=== PATIENT | male | born 1960 | race Caucasian/White ===

== ENCOUNTER 2017-12-10 12:03 | Observation (INO) | payer OTHER, SELFPAY ==
[2017-12-10] VITALS (11 sets, daily range): BP systolic 124–150; BP diastolic 71–90; PULSE 71–81; RESP 12–20; TEMP 36.6–36.8; O2SAT 96–98; BMI 41.4; BMI 40.3
--- NOTE | 2017-12-10 12:25 | EKG12_ITS ---
Test Reason : Blood Pressure : / mmHG Vent. Rate : 076 BPM Atrial Rate : 076 BPM P-R Int : 172 ms QRS Dur : 094 ms QT Int : 374 ms P-R-T Axes : 034 -26 002 degrees QTc Int : 420 ms Normal sinus rhythm Normal ECG Confirmed by CHARAN STONE, URI ([id number]), scientific editor SILVANA SAPP ([id number] on 12/13/2017 1:14:19 PM Referred By: MILDRED Confirmed By:URI FARRAR MD
--- NOTE | 2017-12-10 12:25 | RAD_ITS ---
STUDY: X-RAY CHEST REASON FOR EXAM: Male, 57 years old. 3 day history of chest pain. TECHNIQUE: Single AP portable view of the chest. COMPARISON: None. FINDINGS: EKG electrodes are seen. The lungs are clear and expanded. There is no demonstrated pleural abnormality. There is mild cardiac enlargement. Normal mediastinum and kaylin. Normal visualized pulmonary arteries. There is atherosclerotic tortuosity of the aortic arch and descending thoracic aorta. There are diffuse degenerative changes of the visualized thoracic spine. Normal visualized ribs, clavicles, and shoulders. There is no demonstrated abnormality of the visualized soft tissue structures of the upper abdomen. RAD/Chest 1 View (Portable) IMPRESSION: Mild cardiomegaly. No acute abnormality is seen. Electronically Signed: Celestino Sands MD at 13:02 EDT Tel [phone], Service support ,
[2017-12-10] MEDS: Aspirin 81 MG TAB.CHEW 324 MG PO (13:08)
[2017-12-10 13:19] LABS: Absolute Lymphocyte Count 1.39 X10^3/ul (0.83-4.51); Absolute Neutrophil Count 2.3 X10^3/uL (2.0-7.7); Basophil# 0.03 X10^3/uL; Basophil% 0.7 % (0-1); Eosinophil# 0.08 X10^3/uL; Eosinophils% 1.9 % (0-5); Hematocrit 44.6 % (40-54); Hemoglobin 14.5 g/dl (13.0-16.5); Lymphocyte # 1.39 X10^3/ul (4.0); Lymphocyte % 33.5 % (19-41); Mean Corp Hgb Conc 32.5 g/gl (32-36); Mean Corpuscular Volume 89.2 fL (80-94); Monocyte% 7.2 % (0-10); Neutrophil # 2.34 X10^3/uL (2.7-7.7); Neutrophil % 56.5 % (47-70); Platelet Count 208 K/mm3 (150-450); RBC Distribution Width CV 13.7 % (11.6-14.6); RBC Distribution Width SD 44.8 fl (35.1-43.9); White Blood Count 4.2 K/mm3 (4.4-11.0)
[2017-12-10 13:23] LABS: Differential Indicated SCAN CRITERIA MET; POSITIVE COUNT NO; POSITIVE DIFFERENTIAL NO; POSITIVE MORPHOLOGY YES
[2017-12-10 13:24] LABS: Anion Gap 8 (5-15); BUN 14 mg/dL (7-18); BUN/Creat Ratio 15.9 RATIO (10-20); Calcium,Total 8.8 mg/dL (8.5-10.1); Chloride 104 mmol/L (98-107); Creatinine, Serum 0.88 mg/dL (0.70-1.30); EST Glomerular Filtration Rate 95 mL/min (>60); Est Glom Filt Rate - Afr Amer 115 mL/min (>60); Estimated Creatinine Clearance 90.68 ml/min; Glucose 102 mg/dL (74-106); Potassium 4.2 mmol/L (3.5-5.1); Sodium Level 138 mmol/L (136-145)
--- NOTE | 2017-12-10 15:58 | ED.VISSUMM ---
- ER Visit Summary Date of Service: 12/10/17 Chief Complaint: Chest pain History of Present Illness: The patient is a 57 M history of CAD with prior cardiac stents around 1999 and. Hypertension and high cholesterol. Has had no recent cardiac workup. He states when he initially had chest pain 12 years ago he had a negative stress test but then they did a heart cath with a significant LAD lesion. He has had no recent cardiac catheterization. He states he has been having intermittent chest pain for months. Also exertional dyspnea. Physical Examination: Well-appearing middle-age male. Vital signs are stable afebrile. Pulse ox 96% on room air no hypoxia. HEENT exam unremarkable. Neck nontender. Lungs clear to auscultation bilaterally. Heart regular rhythm no murmur. Chest wall nontender. Abdomen soft nontender. Moving all 4 extremities. Calves nontender. No edema. No cords. Neurologically is awake alert with no focal motor deficits. Test Results: Chest x-ray mild cardiomegaly otherwise unremarkable read both by myself the radiologist. CBC normal. Chemistries normal. Troponin normal. EKG sinus rhythm rate is 76 with no acute abnormality. Emergency Department Course and Treatment: Underwent a cardiac workup. Receive p.o. aspirin as his workup is negative however I am concerned with his recent he is willing to be admitted. Treatment Plan: I spoke both to the hospitalist when the gardening instructor about admission and further evaluation. Disposition: Admit Impression: Acute chest pain of uncertain etiology next The with 2 cardiac stents This note was generated with [employer] dictation software. It may contain incorrect words, spelling, and punctuation that were not noted in review of the chart prior to signing ED Disposition - Plan for ED Patient: Chief Complaint: Chest Pain
--- NOTE | 2017-12-10 16:01 | ED.DCSUM_ITS ---
- ER Visit Summary Date of Service: 12/10/17 Chief Complaint: Chest pain History of Present Illness: The patient is a 57 M history of CAD with prior cardiac stents around 1999 and. Hypertension and high cholesterol. Has had no recent cardiac workup. He states when he initially had chest pain 12 years ago he had a negative stress test but then they did a heart cath with a significant LAD lesion. He has had no recent cardiac catheterization. He states he has been having intermittent chest pain for months. Also exertional dyspnea. Physical Examination: Well-appearing middle-age male. Vital signs are stable afebrile. Pulse ox 96% on room air no hypoxia. HEENT exam unremarkable. Neck nontender. Lungs clear to auscultation bilaterally. Heart regular rhythm no murmur. Chest wall nontender. Abdomen soft nontender. Moving all 4 extremities. Calves nontender. No edema. No cords. Neurologically is awake alert with no focal motor deficits. Test Results: Chest x-ray mild cardiomegaly otherwise unremarkable read both by myself the radiologist. CBC normal. Chemistries normal. Troponin normal. EKG sinus rhythm rate is 76 with no acute abnormality. Emergency Department Course and Treatment: Underwent a cardiac workup. Receive p.o. aspirin as his workup is negative however I am concerned with his recent he is willing to be admitted. Treatment Plan: I spoke both to the hospitalist when the olive packer about admission and further evaluation. Disposition: Admit Impression: Acute chest pain of uncertain etiology next The with 2 cardiac stents This note was generated with [employer] dictation software. It may contain incorrect words, spelling, and punctuation that were not noted in review of the chart prior to signing ED Disposition - Plan for ED Patient: Chief Complaint: Chest Pain
--- NOTE | 2017-12-10 16:20 | EKG12_ITS ---
Test Reason : ADMISSION CP EKG Blood Pressure : / mmHG Vent. Rate : 067 BPM Atrial Rate : 067 BPM P-R Int : 176 ms QRS Dur : 094 ms QT Int : 406 ms P-R-T Axes : 046 -19 003 degrees QTc Int : 429 ms Normal sinus rhythm Normal ECG When compared with ECG of 10-DEC-2017 12:13, MANUAL COMPARISON REQUIRED, DATA IS UNCONFIRMED Confirmed by CHARAN STONE, URI ([id number]), material expeditor SILVANA SAPP ([id number]) on 12/13/2017 1:30:40 PM Referred By: MEHDI Confirmed By:URI FARRAR MD
--- NOTE | 2017-12-10 16:22 | PCM.HP.STD ---
Problem List (1) Chest pain Status: Acute (2) CAD (coronary artery disease) Status: Chronic (3) ROSEMARIE (obstructive sleep apnea) Status: Chronic (4) History of tobacco abuse Status: Chronic Comment: No longer smoking (5) Hyperlipidemia Status: Chronic Qualifiers: History of Present Illness Date of Admission: 12/10/17 Chief Complaint: chest pain The patient is a 57 year old M who has a pmhx of CAD with prior stents in 2005, pt of Dr. Bustamante, also with hx of ROSEMARIE -compliant with CPAP, morbid obesity, HLD, who presents to the ER with c/o chest pain. He states he has had intermittent brief episodes frequently over the past month. They come on both at rest and exertion and last about 3-4 minutes before spontaneously resolving. He describes them as 3-4/10 squeezing dull pain in his midsternum and left chest wall. Sometimes these are associated with nausea, dizziness, and a flushing numb sensation in his cheeks and back of head/neck area. He has not contacted his professor of oceanography to inform him of these events. He denies SOB. Reportedly he has had false negative stress tests in the past. Also in the past 3-4 days he has had nightly chills and rigors. He denies being ill, and denies symptoms including cough, sore throat, congestion, vomiting, diarrhea, abdominal pain, dysuria. He is currently resting comfortably in bed NAD no CP. [] Past Medical History Past Medical History (Chronic Problems): Chronic Problems (Last Reviewed 06/21/17 @ 15:58 by Nabeel Kent) CAD (coronary artery disease) (Chronic) ROSEMARIE (obstructive sleep apnea) (Chronic) History of tobacco abuse (Chronic) No longer smoking Hyperlipidemia (Chronic) History of left heart catheterization (Chronic) 09/19/2005: PTCA and TRISHA to proximal LAD per Dr. Canas @ [facility]; [facility] 12/10/[address] Canas @ [facility]; 01/03/07 IVUS of LAD Stented coronary artery (Chronic) 09/19/2005: PTCA and TRISHA to proximal LAD; 01/03/07 IVUS of LAD Atherosclerotic heart disease of [place] coronary artery without angina pectoris (Chronic) 09/19/2005: PTCA and TRISHA to proximal LAD; 01/03/07 IVUS of LAD Nonrheumatic mitral (valve) prolapse (Chronic) Medical History: Medical History (Last Reviewed 06/21/17 @ 15:58 by Nabeel Kent) History of tobacco abuse (Chronic) Z87.891 No longer smoking Hyperlipidemia (Chronic) E78.5 Atherosclerotic heart disease of [place] coronary artery without angina pectoris (Chronic) I25.10 09/19/2005: PTCA and TRISHA to proximal LAD; 01/03/07 IVUS of LAD Nonrheumatic mitral (valve) prolapse (Chronic) I34.1 Allergies No Known Allergies Allergy (Verified 12/10/17 12:05) Home Medications: Ambulatory Orders Medication Instructions Recorded aspirin 81 mg tablet,delayed 81 mg PO DAILY tab 06/19/17 release nitroglycerin 0.4 mg sublingual 0.4 mg SUBLINGUAL Q5-15M PRN 06/19/17 tablet metoprolol succinate ER 50 mg 50 mg PO QDAY #90 tab 06/21/17 tablet,extended release 24 hr Atorvastatin Calcium [Lipitor] 80 mg PO QHS 12/10/17 Ropinirole HCl [Requip] 2 mg PO QHS 12/10/17 Surgical History: Surgical History (Last Reviewed 06/21/17 @ 15:57 by Nabeel Kent) History of left heart catheterization (Chronic) Z98.890 09/19/2005: PTCA and TRISHA to proximal LAD per Dr. Canas @ [facility]; [facility] 12/10/[address] Canas @ [facility]; 01/03/07 IVUS of LAD Stented coronary artery (Chronic) Z95.5 09/19/2005: PTCA and TRISHA to proximal LAD; 01/03/07 IVUS of LAD History of arthroscopy of right knee Z98.890 January 2011 Surgical History: - - stents 06, right knee arthroscopy Psychiatric History: No pertinent psych hx Lives: Spouse/ Significant Other Smoking Status: Former smoker Tobacco Use: Cigarettes Alcohol: None Drugs: None - *Family History Maternal Family History: Family History (Last Updated 06/21/17 @ 15:57 by Nabeel Kent) Father Myocardial infarction, Onset Age: 64 CAD (coronary artery disease) Mother Cancer Brother Thyroid cancer Diabetes Sister Thyroid cancer Grandfather Myocardial infarction Grandmother Cancer Review of Systems Constitutional: Denies: Chills, Fever, Weight Change HEENT: Denies: Head Aches, Sinus Congestion, Sinus Drainage Cardiovascular: Reports: Chest Pain, Chest Tightness. Denies: Palpitations Respiratory: Denies: Cough, Shortness of breath at rest, Sputum production Gastrointestinal: Denies: Abdominal Pain, Nausea, Vomiting Genitourinary: Denies: Dysuria Musculoskeletal: Denies: Joint Pain, Joint Tenderness Skin: Denies: Rash, Wounds Neurological: Reports: Headaches, Numbness. Denies: Focal weakness, Tingling Psychiatric: Denies: Anxiety, Depression, Homicidal Ideations, Suicidal Ideations Hematologic/ Lymphatic: Denies: Easy Bruising, Easy Bleeding VTE Information - Inpt Only VTE Present on Admission: No VTE Mechan Device Prophylaxis: None VTE Pharm Prophylaxis ordered?: Yes Patient Problems: Active and Suspected Problems (Last Reviewed 06/21/17 @ 15:58 by Nabeel Kent) Chest pain (Acute) - Physical Exam General: Alert, Oriented x3, Cooperative HEENT: Atraumatic, PERRLA, EOMI, Normocephalic Neck: Supple, No JVD, Negative Carotid Bruits Lungs: Clear to auscultation, Normal air movement Cardiovascular: Regular rate, No murmurs Abdomen: Bowel Sounds Present, Soft, Non Tender, Obese Extremities: No edema, Capillary Refill Less than 3 Seconds Skin: No rashes, No breakdown Musculoskeletal: No Tenderness to Palpation of Joints or Extremities Neurological: Cranial nerves II-XII grossly intact Psych/Mental Status: Normal Affect, Appropriate, Alert and oriented to time, place, person, mood and affect Vital Signs Temp Pulse Resp BP Pulse Ox 98.3 F 71 16 136/84 H 97 12/10/17 12:04 12/10/17 15:29 12/10/17 15:29 12/10/17 15:29 12/10/17 15:29 Assessment/Plan All Active Problems (Last Reviewed 06/21/17 @ 15:58 by Nabeel Kent) Chest pain (Acute) 1. Chest pain - prior CAD and stents. Pt of Dr. Bustamante, recurrent over past month. C/s professor of oceanography. Trop/ekg/cxr negative. Cycle enzymes, repeat EKG, maintain tele, stress echo in AM. -on asa, statin, toprol, not on isatu-i 2. Chills/rigors - no specific other symptoms indicating infection, normal vitals and labs. Check urine. CXR neg. Suspect viral illness 3. ROSEMARIE - cpap qhs 4. HLD - statin 5. Morbid obesity - dietary eval DVT ppx: lovenox This patient was seen by Emile Miranda PA-C under the supervision of Doctor Kash.
--- NOTE | 2017-12-10 16:26 | HP.PCM_ITS ---
Problem List (1) Chest pain Status: Acute (2) CAD (coronary artery disease) Status: Chronic (3) ROSEMARIE (obstructive sleep apnea) Status: Chronic (4) History of tobacco abuse Status: Chronic Comment: No longer smoking (5) Hyperlipidemia Status: Chronic Qualifiers: History of Present Illness Date of Admission: 12/10/17 Chief Complaint: chest pain The patient is a 57 year old M who has a pmhx of CAD with prior stents in 2005, pt of Dr. Bustamante, also with hx of ROSEMARIE -compliant with CPAP, morbid obesity, HLD, who presents to the ER with c/o chest pain. He states he has had intermittent brief episodes frequently over the past month. They come on both at rest and exertion and last about 3-4 minutes before spontaneously resolving. He describes them as 3-4/10 squeezing dull pain in his midsternum and left chest wall. Sometimes these are associated with nausea, dizziness, and a flushing numb sensation in his cheeks and back of head/neck area. He has not contacted his fryline attendant to inform him of these events. He denies SOB. Reportedly he has had false negative stress tests in the past. Also in the past 3-4 days he has had nightly chills and rigors. He denies being ill, and denies symptoms including cough, sore throat, congestion, vomiting, diarrhea, abdominal pain, dysuria. He is currently resting comfortably in bed NAD no CP. [] Past Medical History Past Medical History (Chronic Problems): Chronic Problems (Last Reviewed 06/21/17 @ 15:58 by Nabeel Kent) CAD (coronary artery disease) (Chronic) ROSEMARIE (obstructive sleep apnea) (Chronic) History of tobacco abuse (Chronic) No longer smoking Hyperlipidemia (Chronic) History of left heart catheterization (Chronic) 09/19/2005: PTCA and TRISHA to proximal LAD per Dr. Canas @ [facility]; [facility] 12/10/[address] Canas @ [facility]; 01/03/07 IVUS of LAD Stented coronary artery (Chronic) 09/19/2005: PTCA and TRISHA to proximal LAD; 01/03/07 IVUS of LAD Atherosclerotic heart disease of [place] coronary artery without angina pectoris (Chronic) 09/19/2005: PTCA and TRISHA to proximal LAD; 01/03/07 IVUS of LAD Nonrheumatic mitral (valve) prolapse (Chronic) Medical History: Medical History (Last Reviewed 06/21/17 @ 15:58 by Nabeel Kent) History of tobacco abuse (Chronic) Z87.891 No longer smoking Hyperlipidemia (Chronic) E78.5 Atherosclerotic heart disease of [place] coronary artery without angina pectoris (Chronic) I25.10 09/19/2005: PTCA and TRISHA to proximal LAD; 01/03/07 IVUS of LAD Nonrheumatic mitral (valve) prolapse (Chronic) I34.1 Allergies No Known Allergies Allergy (Verified 12/10/17 12:05) Home Medications: Ambulatory Orders Medication Instructions Recorded aspirin 81 mg tablet,delayed 81 mg PO DAILY tab 06/19/17 release nitroglycerin 0.4 mg sublingual 0.4 mg SUBLINGUAL Q5-15M PRN 06/19/17 tablet metoprolol succinate ER 50 mg 50 mg PO QDAY #90 tab 06/21/17 tablet,extended release 24 hr Atorvastatin Calcium [Lipitor] 80 mg PO QHS 12/10/17 Ropinirole HCl [Requip] 2 mg PO QHS 12/10/17 Surgical History: Surgical History (Last Reviewed 06/21/17 @ 15:57 by Nabeel Kent) History of left heart catheterization (Chronic) Z98.890 09/19/2005: PTCA and TRISHA to proximal LAD per Dr. Canas @ [facility]; [facility] 12/10/[address] Canas @ [facility]; 01/03/07 IVUS of LAD Stented coronary artery (Chronic) Z95.5 09/19/2005: PTCA and TRISHA to proximal LAD; 01/03/07 IVUS of LAD History of arthroscopy of right knee Z98.890 January 2011 Surgical History: - - stents 06, right knee arthroscopy Psychiatric History: No pertinent psych hx Lives: Spouse/ Significant Other Smoking Status: Former smoker Tobacco Use: Cigarettes Alcohol: None Drugs: None - *Family History Maternal Family History: Family History (Last Updated 06/21/17 @ 15:57 by Nabeel Kent) Father Myocardial infarction, Onset Age: 64 CAD (coronary artery disease) Mother Cancer Brother Thyroid cancer Diabetes Sister Thyroid cancer Grandfather Myocardial infarction Grandmother Cancer Review of Systems Constitutional: Denies: Chills, Fever, Weight Change HEENT: Denies: Head Aches, Sinus Congestion, Sinus Drainage Cardiovascular: Reports: Chest Pain, Chest Tightness. Denies: Palpitations Respiratory: Denies: Cough, Shortness of breath at rest, Sputum production Gastrointestinal: Denies: Abdominal Pain, Nausea, Vomiting Genitourinary: Denies: Dysuria Musculoskeletal: Denies: Joint Pain, Joint Tenderness Skin: Denies: Rash, Wounds Neurological: Reports: Headaches, Numbness. Denies: Focal weakness, Tingling Psychiatric: Denies: Anxiety, Depression, Homicidal Ideations, Suicidal Ideations Hematologic/ Lymphatic: Denies: Easy Bruising, Easy Bleeding VTE Information - Inpt Only VTE Present on Admission: No VTE Mechan Device Prophylaxis: None VTE Pharm Prophylaxis ordered?: Yes Patient Problems: Active and Suspected Problems (Last Reviewed 06/21/17 @ 15:58 by Nabeel Kent) Chest pain (Acute) - Physical Exam General: Alert, Oriented x3, Cooperative HEENT: Atraumatic, PERRLA, EOMI, Normocephalic Neck: Supple, No JVD, Negative Carotid Bruits Lungs: Clear to auscultation, Normal air movement Cardiovascular: Regular rate, No murmurs Abdomen: Bowel Sounds Present, Soft, Non Tender, Obese Extremities: No edema, Capillary Refill Less than 3 Seconds Skin: No rashes, No breakdown Musculoskeletal: No Tenderness to Palpation of Joints or Extremities Neurological: Cranial nerves II-XII grossly intact Psych/Mental Status: Normal Affect, Appropriate, Alert and oriented to time, place, person, mood and affect Vital Signs Temp Pulse Resp BP Pulse Ox 98.3 F 71 16 136/84 H 97 12/10/17 12:04 12/10/17 15:29 12/10/17 15:29 12/10/17 15:29 12/10/17 15:29 Assessment/Plan All Active Problems (Last Reviewed 06/21/17 @ 15:58 by Nabeel Kent) Chest pain (Acute) 1. Chest pain - prior CAD and stents. Pt of Dr. Bustamante, recurrent over past month. C/s fryline attendant. Trop/ekg/cxr negative. Cycle enzymes, repeat EKG, maintain tele, stress echo in AM. -on asa, statin, toprol, not on isatu-i 2. Chills/rigors - no specific other symptoms indicating infection, normal vitals and labs. Check urine. CXR neg. Suspect viral illness 3. ROSEMARIE - cpap qhs 4. HLD - statin 5. Morbid obesity - dietary eval DVT ppx: lovenox This patient was seen by Emile Miranda PA-C under the supervision of Doctor Kash.
[2017-12-10 16:53] LABS: Prothrombin Time (Protime)PT. 13.5 SECONDS (11.7-14.9)
[2017-12-10 16:54] LABS: Partial Thromboplast Time 31.2 Seconds (24.1-36.2)
[2017-12-10 17:01] LABS: Magnesium 2.2 mg/dL (1.6-2.6)
--- NOTE | 2017-12-10 17:20 | PCM.CONS.C ---
Reason for Consult Date of Consultation: 12/10/17 History of Present Illness: The patient is a 57 year old M with a past medical history significant for coronary artery disease documented and diagnosed in 2005. According to him he underwent a stress test at that time and was told that he was in perfectly good health and then the next thing he knew he was being restored for an ambulance to [place]. He underwent a cardiac catheterization which demonstrated a high-grade lesion noted in the left anterior descending artery for which she had a drug-eluting stents placed. In 2006 he subsequently presented for follow-up visit and underwent intravascular ultrasound evaluation of that vessel but was noted to be unremarkable and medical therapy was continued. He has done well since then until approximately a month ago when he started having some chest heaviness. He says that it occurs at different times of the day not necessarily related to activity and not relieved by medication but is generally relieved by resting. He says that the discomfort was similar to what he had approximately 12 years ago and therefore he decided to present to the hospital. He was evaluated in the emergency room and admitted. He has had no EKG changes or cardiac enzyme abnormality. He is currently pain-free. [] Past Medical History Allergies/Adverse Reactions: Allergies No Known Allergies Allergy (Verified 12/10/17 12:05) Home Medications: Ambulatory Orders Medication Instructions Recorded aspirin 81 mg tablet,delayed 81 mg PO DAILY tab 06/19/17 release nitroglycerin 0.4 mg sublingual 0.4 mg SUBLINGUAL Q5-15M PRN 06/19/17 tablet metoprolol succinate ER 50 mg 50 mg PO QDAY #90 tab 06/21/17 tablet,extended release 24 hr Atorvastatin Calcium [Lipitor] 80 mg PO QHS 12/10/17 Ropinirole HCl [Requip] 2 mg PO QHS 12/10/17 Past Medical History (Chronic Problems): Chronic Problems (Last Reviewed 06/21/17 @ 15:58 by Nabeel Kent) CAD (coronary artery disease) (Chronic) ROSEMARIE (obstructive sleep apnea) (Chronic) History of tobacco abuse (Chronic) No longer smoking Hyperlipidemia (Chronic) History of left heart catheterization (Chronic) 09/19/2005: PTCA and TRISHA to proximal LAD per Dr. Canas @ [facility]; [facility] 12/10/[address] Canas @ [facility]; 01/03/07 IVUS of LAD Stented coronary artery (Chronic) 09/19/2005: PTCA and TRISHA to proximal LAD; 01/03/07 IVUS of LAD Atherosclerotic heart disease of [place] coronary artery without angina pectoris (Chronic) 09/19/2005: PTCA and TRISHA to proximal LAD; 01/03/07 IVUS of LAD Nonrheumatic mitral (valve) prolapse (Chronic) Surgical History: - - stents 06, right knee arthroscopy Psychiatric History: No pertinent psych hx - *Family History Maternal Family History: Family History (Last Updated 06/21/17 @ 15:57 by Nabeel Kent) Father Myocardial infarction, Onset Age: 64 CAD (coronary artery disease) Mother Cancer Brother Thyroid cancer Diabetes Sister Thyroid cancer Grandfather Myocardial infarction Grandmother Cancer Lives: Spouse/ Significant Other Smoking Status: Former smoker Tobacco Use: Cigarettes Alcohol: None Drugs: None Review of Systems - Review of Systems General: Denies: Fever, Night Sweats, Fatigue Cardiovascular: Reports: Chest Discomfort at Rest, Chest Discomfort with Exertion. Denies: Chest Discomfort, Shortness of Breath, Orthopnea, PND, Peripheral Edema, Palpitations, Lightheadedness, Dizziness, Near Syncope, Syncope Respiratory: Denies: Cough, Sputum Production, Hemoptysis Gastrointestinal: Denies: Hematemesis, Hematochezia, Melena Genitourinary: Denies: Dysuria, Hematuria Skin: Denies: Rash Subjectve: Pleasant gentleman in no apparent distress. Objective: Vital Signs Temp Pulse Resp BP Pulse Ox 98.3 F 71 16 136/84 H 97 12/10/17 12:04 12/10/17 15:29 12/10/17 15:29 12/10/17 15:29 12/10/17 15:29 Weight: 265 lb 3.457 oz Body Mass Index (BMI) 40.3 General: Awake, Alert, Oriented x 3 HEENT: PERRL, EOMI, Sclera Non Icteric Neck: Supple, Good ROM, No Lymph Node Enlargement Lungs: Clear to auscultation Cardiovascular: Regular Rhythm, Normal S1, Normal S2, No Murmurs, No Rubs, No Gallops Vascular: No Carotid Bruits, Normal Femoral Pulses, Normal Radial Pulses, Normal Dorsalis Pedal Pulse, Normal Posterior Tibial Pulses Abdomen: Bowel Sounds Present, Soft, Non Tender, No HSM, No Organomegaly Extremities: No Cyanosis, No Clubbing, No edema Neurological: No Focal Motor or Sensory Deficit Rhythm: EKG: Normal sinus rhythm with no acute changes. Assessment/Plan 1. Chest pain. He presents with chest pain with some features which are atypical but others which are suggestive of coronary disease. I did suggest to him that ideally he should undergo stress testing for risk stratification. He does state categorically that he had that done 12 years ago and was told that it was normal and he had disease therefore he would not undergo stress testing but would rather checkout . I did suggest that the alternative would be to perform a cardiac catheterization with a possible view to angioplasty if need be. We discussed the options of radial versus femoral approach or both. He is not opposed to a radial diagnostic and a femoral angioplasty if need be. Risk benefits alternatives have been explained to him he understands and agrees to proceed. I would recommend loading him with 300 mg of clopidogrel Continue 75 mg of clopidogrel in a.m. Continue current dose of beta-adrienne 2. Hypertension Blood pressure appears to be under decent control on the current medical therapy and no other major changes will be made. 3. Hyperlipidemia Does have a history of hyperlipidemia and is on high intensity statin. This will be continued throughout his hospitalization. Thank you for allowing me to participate in the care of your patient. Please don't hesitate to call if any issues arise
--- NOTE | 2017-12-10 17:26 | CON.PCM_ITS ---
Reason for Consult Date of Consultation: 12/10/17 History of Present Illness: The patient is a 57 year old M with a past medical history significant for coronary artery disease documented and diagnosed in 2005. According to him he underwent a stress test at that time and was told that he was in perfectly good health and then the next thing he knew he was being restored for an ambulance to [place]. He underwent a cardiac catheterization which demonstrated a high- grade lesion noted in the left anterior descending artery for which she had a drug-eluting stents placed. In 2006 he subsequently presented for follow-up visit and underwent intravascular ultrasound evaluation of that vessel but was noted to be unremarkable and medical therapy was continued. He has done well since then until approximately a month ago when he started having some chest heaviness. He says that it occurs at different times of the day not necessarily related to activity and not relieved by medication but is generally relieved by resting. He says that the discomfort was similar to what he had approximately 12 years ago and therefore he decided to present to the hospital. He was evaluated in the emergency room and admitted. He has had no EKG changes or cardiac enzyme abnormality. He is currently pain-free. [] Past Medical History Allergies/Adverse Reactions: Allergies No Known Allergies Allergy (Verified 12/10/17 12:05) Home Medications: Ambulatory Orders Medication Instructions Recorded aspirin 81 mg tablet,delayed 81 mg PO DAILY tab 06/19/17 release nitroglycerin 0.4 mg sublingual 0.4 mg SUBLINGUAL Q5-15M PRN 06/19/17 tablet metoprolol succinate ER 50 mg 50 mg PO QDAY #90 tab 06/21/17 tablet,extended release 24 hr Atorvastatin Calcium [Lipitor] 80 mg PO QHS 12/10/17 Ropinirole HCl [Requip] 2 mg PO QHS 12/10/17 Past Medical History (Chronic Problems): Chronic Problems (Last Reviewed 06/21/17 @ 15:58 by Nabeel Kent) CAD (coronary artery disease) (Chronic) ROSEMARIE (obstructive sleep apnea) (Chronic) History of tobacco abuse (Chronic) No longer smoking Hyperlipidemia (Chronic) History of left heart catheterization (Chronic) 09/19/2005: PTCA and TRISHA to proximal LAD per Dr. Canas @ [facility]; [facility] 12/10/[address] Canas @ [facility]; 01/03/07 IVUS of LAD Stented coronary artery (Chronic) 09/19/2005: PTCA and TRISHA to proximal LAD; 01/03/07 IVUS of LAD Atherosclerotic heart disease of [place] coronary artery without angina pectoris (Chronic) 09/19/2005: PTCA and TRISAH to proximal LAD; 01/03/07 IVUS of LAD Nonrheumatic mitral (valve) prolapse (Chronic) Surgical History: - - stents 06, right knee arthroscopy Psychiatric History: No pertinent psych hx - *Family History Maternal Family History: Family History (Last Updated 06/21/17 @ 15:57 by Nabeel Kent) Father Myocardial infarction, Onset Age: 64 CAD (coronary artery disease) Mother Cancer Brother Thyroid cancer Diabetes Sister Thyroid cancer Grandfather Myocardial infarction Grandmother Cancer Lives: Spouse/ Significant Other Smoking Status: Former smoker Tobacco Use: Cigarettes Alcohol: None Drugs: None Review of Systems - Review of Systems General: Denies: Fever, Night Sweats, Fatigue Cardiovascular: Reports: Chest Discomfort at Rest, Chest Discomfort with Exertion. Denies: Chest Discomfort, Shortness of Breath, Orthopnea, PND, Peripheral Edema, Palpitations, Lightheadedness, Dizziness, Near Syncope, Syncope Respiratory: Denies: Cough, Sputum Production, Hemoptysis Gastrointestinal: Denies: Hematemesis, Hematochezia, Melena Genitourinary: Denies: Dysuria, Hematuria Skin: Denies: Rash Subjectve: Pleasant gentleman in no apparent distress. Objective: Vital Signs Temp Pulse Resp BP Pulse Ox 98.3 F 71 16 136/84 H 97 12/10/17 12:04 12/10/17 15:29 12/10/17 15:29 12/10/17 15:29 12/10/17 15:29 Weight: 265 lb 3.457 oz Body Mass Index (BMI) 40.3 General: Awake, Alert, Oriented x 3 HEENT: PERRL, EOMI, Sclera Non Icteric Neck: Supple, Good ROM, No Lymph Node Enlargement Lungs: Clear to auscultation Cardiovascular: Regular Rhythm, Normal S1, Normal S2, No Murmurs, No Rubs, No Gallops Vascular: No Carotid Bruits, Normal Femoral Pulses, Normal Radial Pulses, Normal Dorsalis Pedal Pulse, Normal Posterior Tibial Pulses Abdomen: Bowel Sounds Present, Soft, Non Tender, No HSM, No Organomegaly Extremities: No Cyanosis, No Clubbing, No edema Neurological: No Focal Motor or Sensory Deficit Rhythm: EKG: Normal sinus rhythm with no acute changes. Assessment/Plan 1. Chest pain. * He presents with chest pain with some features which are atypical but others which are suggestive of coronary disease. I did suggest to him that ideally he should undergo stress testing for risk stratification. He does state categorically that he had that done 12 years ago and was told that it was normal and he had disease therefore he would not undergo stress testing but would rather checkout . I did suggest that the alternative would be to perform a cardiac catheterization with a possible view to angioplasty if need be. We discussed the options of radial versus femoral approach or both. He is not opposed to a radial diagnostic and a femoral angioplasty if need be. Risk benefits alternatives have been explained to him he understands and agrees to proceed. * I would recommend loading him with 300 mg of clopidogrel * Continue 75 mg of clopidogrel in a.m. * Continue current dose of beta-adrienne * 2. Hypertension * Blood pressure appears to be under decent control on the current medical therapy and no other major changes will be made. * 3. Hyperlipidemia * Does have a history of hyperlipidemia and is on high intensity statin. This will be continued throughout his hospitalization. * * Thank you for allowing me to participate in the care of your patient. Please don't hesitate to call if any issues arise
[2017-12-10] MEDS: Clopidogrel Bisulfate 300 MG Tablet PO (17:46)
[2017-12-10] MEDS: 0.9% Normal Saline 1,000 ML 100 ML IV (17:46)
[2017-12-10 20:40] LABS: Bacteria 0 SEEN /hpf (None Seen); Mucous, Urine 0 SEEN /hpf (<or=2+); Squamous Epithelial Cells - UA 0 SEEN /hpf (0-5); White Blood Cells 0 SEEN /hpf (0-5)
[2017-12-10 20:52] LABS: Color, Urine Yellow (Yellow); Glucose, Dipstick Normal (Normal); Ketone-Dipstick Negative (Negative); Leukocyte Esterase-Dipstick Negative /ul (Negative); Nitrite-Dipstick Negative (Negative); Occult Blood-Urine 150 /ul (Negative); Protein-Dipstick Negative (Negative); Specific Gravity, Urine 1.015 (1.002-1.030); Urine Bilirubin Dipstick Negative (Negative); Urine Clarity Clear (Clear); Urine Urobilinogen Normal (Normal)
[2017-12-10 21:09] LABS: Red Blood Cells-Urine 5-10 SEEN /hpf (0-5)
[2017-12-10] MEDS: Pramipexole Di-HCl 1 MG Tablet PO (21:34)
[2017-12-10] MEDS: Atorvastatin Calcium 80 MG Tablet PO (21:34)
[2017-12-10] MEDS: Famotidine 20 MG Tablet PO (21:34)
[2017-12-11] VITALS (15 sets, daily range): BP systolic 105–126; BP diastolic 65–79; PULSE 65–78; RESP 14–18; TEMP 36.7–36.9; O2SAT 96–97
[2017-12-11] MEDS: 0.9% Normal Saline 1,000 ML 100 ML IV (03:20)
[2017-12-11] MEDS: Metoprolol(XL)Succ 50 MG Tablet PO (05:47)
[2017-12-11] MEDS: Aspirin E.C. 81 MG Tablet PO (05:47)
[2017-12-11] MEDS: Clopidogrel Bisulfate 75 MG Tablet PO (05:47)
--- NOTE | 2017-12-11 05:55 | EKG12_ITS ---
Test Reason : Blood Pressure : / mmHG Vent. Rate : 074 BPM Atrial Rate : 074 BPM P-R Int : 168 ms QRS Dur : 092 ms QT Int : 408 ms P-R-T Axes : 052 000 024 degrees QTc Int : 452 ms Normal sinus rhythm Normal ECG When compared with ECG of 10-DEC-2017 16:26, MANUAL COMPARISON REQUIRED, DATA IS UNCONFIRMED Confirmed by CHARAN STONE, URI ([id number]), associate entertainment editor SILVANA SAPP ([id number] on 12/13/2017 1:29:22 PM Referred By: Confirmed By:URI FARRAR MD
[2017-12-11 06:21] LABS: Absolute Lymphocyte Count 1.55 X10^3/ul (0.83-4.51); Basophil# 0.02 X10^3/uL; Basophil% 0.5 % (0-1); Eosinophils% 4.8 % (0-5); Hematocrit 40.7 % (40-54); Hemoglobin 13.6 g/dl (13.0-16.5); Lymphocyte # 1.55 X10^3/ul (4.0); Mean Corp Hgb Conc 33.4 g/gl (32-36); Mean Corpuscular Hgb 29.8 pg (27.0-32.0); Mean Corpuscular Volume 89.3 fL (80-94); Mean Platelet Vol. 10.4 fl (6.2-12.0); Monocyte# 0.43 X10^3/uL; Monocyte% 10.3 % (0-10); Neutrophil # 1.98 X10^3/uL (2.7-7.7); Neutrophil % 47.2 % (47-70); POSITIVE COUNT NO; POSITIVE DIFFERENTIAL NO; POSITIVE MORPHOLOGY NO; Platelet Count 198 K/mm3 (150-450); RBC Distribution Width CV 13.7 % (11.6-14.6); RBC Distribution Width SD 43.9 fl (35.1-43.9); Red Blood Count 4.56 M/mm3 (4.6-6.2); White Blood Count 4.2 K/mm3 (4.4-11.0)
[2017-12-11 06:27] LABS: International Normalized Ratio 1.1; Prothrombin Time (Protime)PT. 13.7 SECONDS (11.7-14.9)
[2017-12-11 06:28] LABS: Partial Thromboplast Time 28.4 Seconds (24.1-36.2)
[2017-12-11 06:38] LABS: Anion Gap 10 (5-15); BUN 15 mg/dL (7-18); BUN/Creat Ratio 18.7 RATIO (10-20); Calcium,Total 8.2 mg/dL (8.5-10.1); Chloride 107 mmol/L (98-107); Cholesterol 104 mg/dL (200); EST Glomerular Filtration Rate 106 mL/min (>60); Est Glom Filt Rate - Afr Amer 128 mL/min (>60); Estimated Creatinine Clearance 99.75 ml/min; Glucose 104 mg/dL (74-106); High Density Lipoprotein 23 mg/dL; Potassium 3.9 mmol/L (3.5-5.1); Sodium Level 141 mmol/L (136-145); Triglycerides 169 mg/dL; Very Low Density Lipoprotein 34 mg/dL (5-40)
--- NOTE | 2017-12-11 08:17 | PCM.PN.CARD ---
Subjectve: Patient seen and evaluated and appears to be stable and underwent cardiac catheterization today. Objective: Vital Signs Temp Pulse Resp BP Pulse Ox 98.1 F 68 14 121/74 H 97 12/11/17 05:45 12/11/17 05:47 12/11/17 05:45 12/11/17 05:47 12/11/17 06:48 Oxygen Delivery Method Room Air Weight: 265 lb 3.457 oz Body Mass Index (BMI) 40.3 Intake and Output for Last 24 Hours 12/09/17 12/10/17 12/11/17 23:59 23:59 23:59 Intake Total 851 / 851 564 / 564 Balance 851 / 851 564 / 564 General: Awake, Alert, Oriented x 3 HEENT: PERRL, EOMI, Sclera Non Icteric Neck: Supple, Good ROM, No Lymph Node Enlargement Lungs: Clear to auscultation Cardiovascular: Regular Rhythm, Normal S1, Normal S2, No Murmurs, No Rubs, No Gallops Vascular: No Carotid Bruits, Normal Femoral Pulses, Normal Radial Pulses, Normal Dorsalis Pedal Pulse, Normal Posterior Tibial Pulses Abdomen: Bowel Sounds Present, Soft, Non Tender, No HSM, No Organomegaly Extremities: No Cyanosis, No Clubbing, No edema Neurological: No Focal Motor or Sensory Deficit 12/10/17 17:21: Troponin I < 0.015 12/10/17 20:00: Troponin I < 0.015 12/10/17 20:30: Urine Color Yellow, Urine Clarity Clear, Urine pH 6.0, Ur Specific [place] 1.015, Urine Protein Negative, Urine Glucose (UA) Normal, Urine Ketones Negative, Urine Occult Blood 150 H, Urine Nitrite Negative, Urine Bilirubin Negative, Urine Urobilinogen Normal, Ur Leukocyte Esterase Negative, Urine RBC 5-10 SEEN, Urine WBC 0 SEEN 12/11/17 05:30: WBC 4.2 L, RBC 4.56 L, Hgb 13.6, Hct 40.7, MCV 89.3, MCH 29.8, MCHC 33.4, RDW 13.7, RDW Differential 43.9, Plt Count 198, MPV 10.4, Immature Gran % (Auto) 0.200, Neut % (Auto) 47.2, Lymph % (Auto) 37.0, [place] % (Auto) 10.3 H, Eos % (Auto) 4.8, Baso % (Auto) 0.5, Absolute Neuts (auto) 2.0, Total Counted Not Reportable 12/11/17 05:30: Sodium 141, Potassium 3.9, Chloride 107, Carbon Dioxide 24.0, Anion Gap 10, BUN 15, Creatinine 0.80, Est GFR (MDRD) Af Amer 128, Est GFR (MDRD) Non-Af 106, BUN/Creatinine Ratio 18.7, Glucose 104, Calcium 8.2 L, Triglycerides 169, Cholesterol 104, LDL Cholesterol 47, VLDL Cholesterol 34, HDL Cholesterol 23 L 12/11/17 05:30: PT 13.7, INR 1.1, APTT 28.4 Rhythm: EKG: ECHO: Stress Test: Cardiac Cath: PCI: CT Surgery: Holter monitor: EPS: PPM: CXR: Chest CT Scan: Medical Necessity - Tobacco Use Smoking Status: Former smoker Tobacco Use: Cigarettes Assessment/Plan 1. Chest pain. He presents with chest pain with some features which are atypical but others which are suggestive of coronary disease. He underwent a cardiac catheterization today which demonstrated the following: Normal left main coronary artery. Left anterior descending artery with proximal 40-50% stenosis. Left anterior descending artery stent with mild in-stent stenosis. Left circumflex artery with proximal 30-40% stenosis. Dominant right coronary artery with mild disease and slow flow. Preserved left ventricular systolic function. Based on the above angiographic findings I would recommend medical therapy. 2. Hypertension Blood pressure appears to be under decent control on the current medical therapy and no other major changes will be made. 3. Hyperlipidemia Does have a history of hyperlipidemia and is on high intensity statin. This will be continued throughout his hospitalization. Thank you for allowing me to participate in the care of your patient. Please don't hesitate to call if any issues arise He can be discharged later today.
--- NOTE | 2017-12-11 08:22 | PN.CARD_ITS ---
Subjectve: Patient seen and evaluated and appears to be stable and underwent cardiac catheterization today. Objective: Vital Signs Temp Pulse Resp BP Pulse Ox 98.1 F 68 14 121/74 H 97 12/11/17 05:45 12/11/17 05:47 12/11/17 05:45 12/11/17 05:47 12/11/17 06:48 Oxygen Delivery Method Room Air Weight: 265 lb 3.457 oz Body Mass Index (BMI) 40.3 Intake and Output for Last 24 Hours 12/09/17 12/10/17 12/11/17 23:59 23:59 23:59 Intake Total 851 / 851 564 / 564 Balance 851 / 851 564 / 564 General: Awake, Alert, Oriented x 3 HEENT: PERRL, EOMI, Sclera Non Icteric Neck: Supple, Good ROM, No Lymph Node Enlargement Lungs: Clear to auscultation Cardiovascular: Regular Rhythm, Normal S1, Normal S2, No Murmurs, No Rubs, No Gallops Vascular: No Carotid Bruits, Normal Femoral Pulses, Normal Radial Pulses, Normal Dorsalis Pedal Pulse, Normal Posterior Tibial Pulses Abdomen: Bowel Sounds Present, Soft, Non Tender, No HSM, No Organomegaly Extremities: No Cyanosis, No Clubbing, No edema Neurological: No Focal Motor or Sensory Deficit 12/10/17 17:21: Troponin I < 0.015 12/10/17 20:00: Troponin I < 0.015 12/10/17 20:30: Urine Color Yellow, Urine Clarity Clear, Urine pH 6.0, Ur Specific [place] 1.015, Urine Protein Negative, Urine Glucose (UA) Normal, Urine Ketones Negative, Urine Occult Blood 150 H, Urine Nitrite Negative, Urine Bilirubin Negative, Urine Urobilinogen Normal, Ur Leukocyte Esterase Negative, Urine RBC 5-10 SEEN, Urine WBC 0 SEEN 12/11/17 05:30: WBC 4.2 L, RBC 4.56 L, Hgb 13.6, Hct 40.7, MCV 89.3, MCH 29.8, MCHC 33.4, RDW 13.7, RDW Differential 43.9, Plt Count 198, MPV 10.4, Immature Gran % (Auto) 0.200, Neut % (Auto) 47.2, Lymph % (Auto) 37.0, [place] % (Auto) 10.3 H, Eos % (Auto) 4.8, Baso % (Auto) 0.5, Absolute Neuts (auto) 2.0, Total Counted Not Reportable 12/11/17 05:30: Sodium 141, Potassium 3.9, Chloride 107, Carbon Dioxide 24.0, Anion Gap 10, BUN 15, Creatinine 0.80, Est GFR (MDRD) Af Amer 128, Est GFR (MDRD ) Non-Af 106, BUN/Creatinine Ratio 18.7, Glucose 104, Calcium 8.2 L, Triglycerides 169, Cholesterol 104, LDL Cholesterol 47, VLDL Cholesterol 34, HDL Cholesterol 23 L 12/11/17 05:30: PT 13.7, INR 1.1, APTT 28.4 Rhythm: EKG: ECHO: Stress Test: Cardiac Cath: PCI: CT Surgery: Holter monitor: EPS: PPM: CXR: Chest CT Scan: Medical Necessity - Tobacco Use Smoking Status: Former smoker Tobacco Use: Cigarettes Assessment/Plan 1. Chest pain. * He presents with chest pain with some features which are atypical but others which are suggestive of coronary disease. * He underwent a cardiac catheterization today which demonstrated the following: Normal left main coronary artery. Left anterior descending artery with proximal 40-50% stenosis. Left anterior descending artery stent with mild in-stent stenosis. Left circumflex artery with proximal 30-40% stenosis. Dominant right coronary artery with mild disease and slow flow. Preserved left ventricular systolic function. Based on the above angiographic findings I would recommend medical therapy. * 2. Hypertension * Blood pressure appears to be under decent control on the current medical therapy and no other major changes will be made. * 3. Hyperlipidemia * Does have a history of hyperlipidemia and is on high intensity statin. This will be continued throughout his hospitalization. * * Thank you for allowing me to participate in the care of your patient. Please don't hesitate to call if any issues arise * He can be discharged later today.
--- NOTE | 2017-12-11 08:31 | CL.D_ITS ---
Patient Name: BRE MAGDALENO Study Date: 12/11/2017 Performing: Levar Bustamante MD Ht: 68 inches 173 cm : 1960 Wt: 264.9 lbs 120 kg Age: 57 Gender: male BSA: 2.3 PROCEDURE(S) PERFORMED YE79-YAT/COR/LV CLINICAL PROFILE AND INDICATIONS Indications: Stable Known CAD Heart Failure: None Stress/Imaging Stress/Image Study Performed: No Angina Classification Anginal Classification w/in 2 Weeks: CCS III CAD Presentations: Stable angina. CONCLUSIONS Non obstructive coronary arteries RECOMMENDATIONS Medical therapy DESCRIPTION OF PROCEDURE The patient arrived to the procedure lab. The risks and benefits of the procedure as well as a full d escription of our services here and current unavailability of surgical backup were fully explained to the patient and/or their significant other prior to the catheterization. The Timeout was completed, verifying the correct patient and procedure. The patient's procedural site was prepped and draped in the usual fashion. Local anesthetic was given subcutaneously to right radial region with Lidocaine 2% . Using a modified Seldinger technique, arterial access was obtained via the right radial artery, a 6 Fr sheath was inserted. Right Coronary Artery selective angiography was then performed in multiple v iews using a 5 Fr. 4.0 [place] catheter. Left Coronary Artery selective angiography was performed in mu ltiple views using a 5 Fr. 4.0 [place] catheter. Left Ventriculography was performed in [place]ED[place] projection using a 5 Fr. Pig[place] catheter. LV to AO pullback pressures were then recorded.The arterial sheath wa s pulled and a TR Band was applied for hemostasis CORONARY ANGIOGRAPHY DOMINANCE: Right Dominant LEFT HEART ASSESSMENT Left Ventricular Ejection Fraction: by LV Gram 60 % Normal Left Ventricular systolic function LEFT MAIN: Angiographically normal LEFT ANTERIOR DECENDING ARTERY: PROX LAD: Moderate luminal irregularities up to 50%, Instent restenosis 30 % CIRCUMFLEX ARTERY: OSTIAL CIRC: 30 % Stenosis RIGHT CORONARY ARTERY: MID RCA: Mild luminal irregularities less than 30% COMPLICATIONS No Complications PROCEDURE MEDICATIONS Versed 1 mg IV Fentanyl 50 mcg IV Oxygen: 2 L/min via nasal cannula Heparin diluted in 23cc Heparinized saline. Patient given 10cc IA of this solution. 12/11/2017 07:59: 12 Verapamil 2.5mg, Ntg 100mcgs, 2000 units of Heparin diluted in 23cc Heparinized saline. Patient give n 10cc IA of this solution. 12/11/2017 07:59:12 SUMMARY OF HEMODYNAMIC DATA Time AIR REST ECG 07:19:49 AO 102/72 (86) SA 08:02:24 LV 107/6, 13 08:09:35 LV 98/4, 9 08:09:41 LV 119/0, 19 08:10:33 LV 120/0, 19 08:10:39 LVp 127/64, 74 08:10:46 AOp 118/67 (90) 08:10:51 Signed By Levar Bustamante MD On 12/11/2017 08:31:03 Levar Bustamante MD
--- NOTE | 2017-12-11 08:37 | CASEMGMT ---
According to [employer] website, the following are in-network tertiary facilities: [facility], [facility], [facility], [facility], [facility], [facility], [facility], [facility], and . Eddie CATALAN CM
--- NOTE | 2017-12-11 11:41 | DCINST_ITS ---
- Discharge Diagnoses Current Active Problems: Current Active and Chronic Problems (Last Reviewed 06/21/17 @ 15:58 by Nabeel Kent) Chest pain (Acute) CAD (coronary artery disease) (Chronic) ROSEMARIE (obstructive sleep apnea) (Chronic) You will use the following diet at home:: Cardiac Discharge Activity: Return to Normal Activity Weight Bearing Status: Weight bearing as tolerated Call your doctor if you observe: Dizziness, Chest pain, Increased palpitations ( irregular heartbeat) Allergies/Adverse Reactions: Allergies No Known Allergies Allergy (Verified 12/10/17 12:05) Medications to take at Discharge aspirin 81 mg tablet,delayed release 81 mg PO DAILY tab 06/19/17 nitroglycerin 0.4 mg sublingual tablet 0.4 mg SUBLINGUAL Q5-15M PRN 06/19/17 metoprolol succinate ER 50 mg tablet,extended release 24 hr 50 mg PO QDAY #90 tab 06/21/17 Atorvastatin Calcium [Lipitor] 80 mg PO QHS 12/10/17 Ropinirole HCl [Requip] 2 mg PO QHS 12/10/17 Isosorbide Mononitrate [Imdur] 30 mg PO DAILY #30 tab 12/11/17 The following prescriptions were given: Isosorbide Mononitrate [Imdur] 30 mg PO DAILY #30 tab Primary Care Physician: Hector Yao DO [Primary Care Provider] - Please follow up with your Primary Care Physician in: one week Test Results: Test results from this visit will be discussed in further detail at your follow- up appointment, if applicable. Please Follow Up With: Levar Bustamante MD When: 2-3 weeks Proposed Discharge Date: 12/11/17
--- NOTE | 2017-12-11 11:41 | DS.PCM_ITS ---
Discharge Date and Diagnosis - Problem List Patient Problems: Active and Suspected Problems (Last Reviewed 06/21/17 @ 15:58 by Nabeel Kent) Chest pain (Acute) Date of Admission: 12/10/17 Date of Discharge: 12/11/17 - Primary Discharge Diagnosis Active and Suspected Problems (Last Reviewed 06/21/17 @ 15:58 by Nabeel Kent) Chest pain (Acute) - Secondary Discharge Diagnosis Chronic Problems (Last Reviewed 06/21/17 @ 15:58 by Nabeel Kent) CAD (coronary artery disease) (Chronic) ROSEMARIE (obstructive sleep apnea) (Chronic) History of tobacco abuse (Chronic) No longer smoking Hyperlipidemia (Chronic) History of left heart catheterization (Chronic) 09/19/2005: PTCA and TRISHA to proximal LAD per Dr. Canas @ [facility]; [facility] 12/10/[address] Canas @ [facility]; 01/03/07 IVUS of LAD Stented coronary artery (Chronic) 09/19/2005: PTCA and TRISHA to proximal LAD; 01/03/07 IVUS of LAD Atherosclerotic heart disease of [place] coronary artery without angina pectoris (Chronic) 09/19/2005: PTCA and TRISHA to proximal LAD; 01/03/07 IVUS of LAD Nonrheumatic mitral (valve) prolapse (Chronic) Hospital Course and Treatment Imaging Results: Diagnostic Data Chest X-Ray 12/10/17 12:25 IMPRESSION: Mild cardiomegaly. No acute abnormality is seen. Electronically Signed: Celestino Sands MD at 13:02 EDT Tel [phone], Service support , Laboratory Tests 12/10/17 12/10/17 12/10/17 12:55 12:55 12:55 WBC 4.2 L RBC 5.00 Hgb 14.5 Hct 44.6 MCV 89.2 MCH 29.0 MCHC 32.5 RDW 13.7 RDW Differential 44.8 H Plt Count 208 MPV 10.0 Immature Gran % (Auto) 0.200 Neut % (Auto) 56.5 Lymph % (Auto) 33.5 [place] % (Auto) 7.2 Eos % (Auto) 1.9 Baso % (Auto) 0.7 Absolute Neuts (auto) 2.3 Absolute Lymphs (auto) 1.39 Total Counted Not Reportable Diff Path Review May foll PT 13.5 INR 1.0 APTT 31.2 Sodium 138 Potassium 4.2 Chloride 104 Carbon Dioxide 26.0 Anion Gap 8 BUN 14 Creatinine 0.88 Estim Creat Clear Calc 90.68 Est GFR (MDRD) Af Amer 115 Est GFR (MDRD) Non-Af 95 BUN/Creatinine Ratio 15.9 Glucose 102 Calcium 8.8 Magnesium Troponin I < 0.015 Triglycerides Cholesterol LDL Cholesterol VLDL Cholesterol HDL Cholesterol Urine Color Urine Clarity Urine pH Ur Specific [place] Urine Protein Urine Glucose (UA) Urine Ketones Urine Occult Blood Urine Nitrite Urine Bilirubin Urine Urobilinogen Ur Leukocyte Esterase Urine RBC Urine WBC Ur Squamous Epith Cells Urine Bacteria Urine Mucus 12/10/17 12/10/17 12/10/17 12:55 17:21 20:00 WBC RBC Hgb Hct MCV MCH MCHC RDW RDW Differential Plt Count MPV Immature Gran % (Auto) Neut % (Auto) Lymph % (Auto) [place] % (Auto) Eos % (Auto) Baso % (Auto) Absolute Neuts (auto) Absolute Lymphs (auto) Total Counted Diff Path Review PT INR APTT Sodium Potassium Chloride Carbon Dioxide Anion Gap BUN Creatinine Estim Creat Clear Calc Est GFR (MDRD) Af Amer Est GFR (MDRD) Non-Af BUN/Creatinine Ratio Glucose Calcium Magnesium 2.2 Troponin I < 0.015 < 0.015 Triglycerides Cholesterol LDL Cholesterol VLDL Cholesterol HDL Cholesterol Urine Color Urine Clarity Urine pH Ur Specific [place] Urine Protein Urine Glucose (UA) Urine Ketones Urine Occult Blood Urine Nitrite Urine Bilirubin Urine Urobilinogen Ur Leukocyte Esterase Urine RBC Urine WBC Ur Squamous Epith Cells Urine Bacteria Urine Mucus 12/10/17 12/11/17 12/11/17 20:30 05:30 05:30 WBC 4.2 L RBC 4.56 L Hgb 13.6 Hct 40.7 MCV 89.3 MCH 29.8 MCHC 33.4 RDW 13.7 RDW Differential 43.9 Plt Count 198 MPV 10.4 Immature Gran % (Auto) 0.200 Neut % (Auto) 47.2 Lymph % (Auto) 37.0 [place] % (Auto) 10.3 H Eos % (Auto) 4.8 Baso % (Auto) 0.5 Absolute Neuts (auto) 2.0 Absolute Lymphs (auto) 1.55 Total Counted Not Reportable Diff Path Review PT INR APTT Sodium 141 Potassium 3.9 Chloride 107 Carbon Dioxide 24.0 Anion Gap 10 BUN 15 Creatinine 0.80 Estim Creat Clear Calc 99.75 Est GFR (MDRD) Af Amer 128 Est GFR (MDRD) Non-Af 106 BUN/Creatinine Ratio 18.7 Glucose 104 Calcium 8.2 L Magnesium Troponin I Triglycerides 169 Cholesterol 104 LDL Cholesterol 47 VLDL Cholesterol 34 HDL Cholesterol 23 L Urine Color Yellow Urine Clarity Clear Urine pH 6.0 Ur Specific [place] 1.015 Urine Protein Negative Urine Glucose (UA) Normal Urine Ketones Negative Urine Occult Blood 150 H Urine Nitrite Negative Urine Bilirubin Negative Urine Urobilinogen Normal Ur Leukocyte Esterase Negative Urine RBC 5-10 SEEN Urine WBC 0 SEEN Ur Squamous Epith Cells 0 SEEN Urine Bacteria 0 SEEN Urine Mucus 0 SEEN 12/11/17 05:30 WBC RBC Hgb Hct MCV MCH MCHC RDW RDW Differential Plt Count MPV Immature Gran % (Auto) Neut % (Auto) Lymph % (Auto) [place] % (Auto) Eos % (Auto) Baso % (Auto) Absolute Neuts (auto) Absolute Lymphs (auto) Total Counted Diff Path Review PT 13.7 INR 1.1 APTT 28.4 Sodium Potassium Chloride Carbon Dioxide Anion Gap BUN Creatinine Estim Creat Clear Calc Est GFR (MDRD) Af Amer Est GFR (MDRD) Non-Af BUN/Creatinine Ratio Glucose Calcium Magnesium Troponin I Triglycerides Cholesterol LDL Cholesterol VLDL Cholesterol HDL Cholesterol Urine Color Urine Clarity Urine pH Ur Specific [place] Urine Protein Urine Glucose (UA) Urine Ketones Urine Occult Blood Urine Nitrite Urine Bilirubin Urine Urobilinogen Ur Leukocyte Esterase Urine RBC Urine WBC Ur Squamous Epith Cells Urine Bacteria Urine Mucus cardiology- Dr Bustamante Operations: None Procedures: Cardiac catheterization Summary of Care Provided: The patient is a 57 year old M with a history of coronary artery disease status post PCI and stents in 2005 2006, hypertension, hyperlipidemia, morbid obesity and ROSEMARIE on CPAP. He was admitted by the ED on 12/10/2017 with a complaint of atypical chest pain which had been going on for about 1-1-1/2 months and was intermittent and substernal. It was rated at 3-4 out of 10 and sometimes presented with activity and sometimes was present whilst at rest. He had assisted nausea, dyspnea and facial flushing. He had also complained of associated chills and shaking at night for the past several days prior to admission but denied any fever, nausea, emesis, upper respiratory infections or dysuria. Troponins x 3 were negative. EKG showed no acute ST changes, and CXR showed only mild cardiomegaly. Patient was counseled about stress test but he stated that he had had that done 12 years ago was told was normal and so therefore he did not want to undergo further stress testing and would rather check out. Cardiology was consulted and patient had a cardiac catheterization done on day of admission which showed nonobstructive coronary arteries. He was started on p.o. Imdur 30 mg daily. Patient remained stable and was discharged home on 12/11/2017. He is to follow-up with cardiology and his primary care doctor. Patient seen and examined prior to discharge. He had no complaints and felt well. He denied any chest pain and denied any fever or chills, cough or chest pain, shortness of breath, abdominal pain, diarrhea vomiting. 12 point review of systems otherwise negative. On examination: Vital Signs Height 5 ft 8 in Weight: 265 lb 3.457 oz Weight in Pounds 265.2 lbs Pulse Ox 97 Temperature 98.4 F Pulse Rate 78 Respiratory Rate 17 Blood Pressure 123/78 Blood Pressure Position Sitting []General: Alert, Oriented x3, Cooperative HEENT: Atraumatic, PERRLA, EOMI, Normocephalic Neck: Supple, No JVD, Negative Carotid Bruits Lungs: Clear to auscultation, Normal air movement Cardiovascular: Regular rate, No murmurs Abdomen: Bowel Sounds Present, Soft, Non Tender, Obese, no palpable organomegaly Extremities: No edema, Capillary Refill Less than 3 Seconds Skin: No rashes, No breakdown Musculoskeletal: No Tenderness to Palpation of Joints or Extremities Neurological: Cranial nerves II-XII grossly intact Psych/Mental Status: Normal Affect, Appropriate, Alert and oriented to time, place, person, mood and affect Plan as stated above. Discharge Diet: Low fat/ Low Cholesterol Discharge Activity: Return to Normal Activity Weight Bearing Status: Weight bearing as tolerated Call your doctor if you observe: Dizziness, Chest pain, Increased palpitations ( irregular heartbeat) Home Medications: Medications to take at Discharge aspirin 81 mg tablet,delayed release 81 mg PO DAILY tab 06/19/17 nitroglycerin 0.4 mg sublingual tablet 0.4 mg SUBLINGUAL Q5-15M PRN 06/19/17 metoprolol succinate ER 50 mg tablet,extended release 24 hr 50 mg PO QDAY #90 tab 06/21/17 Atorvastatin Calcium [Lipitor] 80 mg PO QHS 12/10/17 Ropinirole HCl [Requip] 2 mg PO QHS 12/10/17 Isosorbide Mononitrate [Imdur] 30 mg PO DAILY #30 tab 12/11/17 Following Prescrptions Were Given to Patient: Isosorbide Mononitrate [Imdur] 30 mg PO DAILY #30 tab Primary Care Physician: Hector Yao DO [Primary Care Provider] - Please follow up with your Primary Care Physician in: one week Please Follow Up With: Levar Bustamante MD When: 2-3 weeks Patient Instructions: What Is Angina?, Discharge Instructions: Taking Long- Acting Nitroglycerin Disposition: Home Minutes spent on discharge:: 35 Patient Condition:: Stable Medical Necessity - Tobacco Use Smoking Status: Former smoker Tobacco Use: Cigarettes Meaningful Use Info Meaningful Use Diagnoses (Choose all that apply): None applicable Code Visit Inpatient E&M: 60903 Disch Hosp
[2017-12-12 13:51] LABS: Pathologist Review Reviewed
== END 2017-12-11 12:40 | disposition home or self-care (01) ==
LOC: ED 12:33 → PCU 15:36
PROVIDERS: Internal Medicine Cardiovascular Disease; Physician Assistant; Admitting Provider Family Medicine; Emergency Provider Emergency Medicine; Family Provider Family Medicine; PCP Family Medicine; Visit Provider Student in an Organized Health Care Education/Training Program
DX: I25.10 Atherosclerotic heart disease of native coronary artery without angina pectoris (principal); R06.09 Other forms of dyspnea; E66.01 Morbid (severe) obesity due to excess calories; Z68.41 Body mass index [BMI] 40.0-44.9, adult; Z71.3 Dietary counseling and surveillance; G47.33 Obstructive sleep apnea (adult) (pediatric); E78.5 Hyperlipidemia, unspecified; Z79.82 Long term (current) use of aspirin; Z79.899 Other long term (current) drug therapy; Z87.891 Personal history of nicotine dependence; I11.9 Hypertensive heart disease without heart failure
CPT/HCPCS: 36415; 71045; 80048; 80061; 81001; 83735; 84484; 85025; 85610; 85730; 87086; 87088; 93005; 93458; 96360; 96361; 99152; 99153; 99218; 99283; J7030; A4216; C1769; C1894; G0378; Q9967

== ENCOUNTER → 2019-02-24 15:57 | Outpatient (CLI) | payer OTHER, SELFPAY ==
[2019-02-24 12:45] VITALS: BMI 38.2
[2019-02-24 17:17] LABS: AST(SGOT) 16 U/L (15-37); Alanine Aminotransfer ALT/SGPT 28 U/L (16-61); Albumin, Serum 3.7 g/dL (3.2-5.0); Alkaline Phosphatase 101 U/L (45-117); Bilirubin, Direct 0.15 mg/dL (0.00-0.30); Cholesterol 117 mg/dL (200); Globulin 3.3 g/dL (2.2-4.2); High Density Lipoprotein 37 mg/dL; Triglycerides 154 mg/dL; Very Low Density Lipoprotein 31 mg/dL (5-40)
== END ==
PROVIDERS: Family Provider Family Medicine; PCP Family Medicine; Referring Provider Internal Medicine Cardiovascular Disease; Visit Provider Internal Medicine Cardiovascular Disease
DX: E78.5 Hyperlipidemia, unspecified (principal)
CPT/HCPCS: 36415; 80061; 80076

== ENCOUNTER 2021-05-12 10:15 | Outpatient (CLI) | payer OTHER, SELFPAY ==
[2021-05-12 11:24] LABS: AST(SGOT) 14 U/L (15-37); Alanine Aminotransfer ALT/SGPT 23 U/L (16-61); Albumin, Serum 3.7 g/dL (3.2-5.0); Alkaline Phosphatase 125 U/L (45-117); Bilirubin, Direct 0.27 mg/dL (0.00-0.30); Cholesterol 100 mg/dL (200); Globulin 3.6 g/dL (2.2-4.2); High Density Lipoprotein 34 mg/dL; Protein, Total 7.3 g/dL (6.4-8.2); Triglycerides 81 mg/dL; Very Low Density Lipoprotein 16 mg/dL (5-40)
== END 2021-05-12 23:59 | disposition home or self-care (01) ==
PROVIDERS: PCP Student in an Organized Health Care Education/Training Program; Visit Provider Nurse Practitioner Family
DX: I25.10 Atherosclerotic heart disease of native coronary artery without angina pectoris (principal); E78.5 Hyperlipidemia, unspecified; Z95.5 Presence of coronary angioplasty implant and graft
CPT/HCPCS: 36415; 80061; 80076

== ENCOUNTER → 2022-05-31 | Outpatient (CLI) | payer OTHER, SELFPAY ==
--- NOTE | 2022-05-31 07:08 | ECHOCS_ITS ---
Version 2 Reason For Study: CAD/ASHD Procedure This was a 2D Doppler, Color Flow transthoracic echocardiogram. The study was technically difficult. Contrast injection was performed. Exam performed in department. Left Ventricle Normal LV size. Left ventricular systolic function is normal. The estimated ejection fraction is 60 %. No regional wall motion abnormalities noted. Right Ventricle Normal RV size. Normal systolic function. Atria Normal left atrium. Normal right atrium. Mitral Valve Normal mitral valve. Tricuspid Valve Normal tricuspid valve. Mild (1+) tricuspid valve insufficiency. Pulmonary artery systolic pressure is 34 mmHg. Aortic Valve Trisinus/trileaflet aortic valve. Pulmonic Valve Normal pulmonic valve. Great Vessels Normal aortic root. The pulmonary artery is normal size. Normal inferior vena cava. Pericardium/Pleural No pericardial effusion. Medication 20 gauge I.V. with prn adaptor inserted into right arm. Diluted definity 1.5ml given slow IV push to enhance endocardial definition. MMode/2D Measurements & Calculations LVIDd: 5.2 cm IVSd: 0.73 cm Ao root diam: 3.0 cm LVIDs: 3.8 cm LVPWd: 0.95 cm LA dimension: 4.0 cm RVDd: 3.3 cm FS: 28.1 % LAV(MOD-bp): 67.2 ml LVAd ap4: 36.7 cm2 SV(MOD-sp4): 83.5 ml LAV(MOD-bp) Indexed: 30.1 ml/m2 LVLd ap4: 8.5 cm LAV(MOD-sp2): 54.9 ml EDV(MOD-sp4): 129.2 ml LAV(MOD-sp4): 67.5 ml EDV(sp4-el): 134.4 ml LVAs ap4: 20.5 cm2 LVLs ap4: 7.6 cm ESV(MOD-sp4): 45.7 ml ESV(sp4-el): 46.9 ml EF(MOD-sp4): 64.6 % EF(sp4-el): 65.1 % SV(sp4-el): 87.5 ml LA A4 area: 22.4 cm2 RA A4 area: 17.7 cm2 Time Measurements MV dec time: 0.22 sec Doppler Measurements & Calculations MV E max vicente: 70.5 cm/sec Lat Peak E' Vicente: 10.8 cm/sec Med Peak E' Vicente: 10.2 cm/sec MV A max vicente: 71.4 cm/sec E/E' lat: 6.5 E/E' med: 6.9 MV E/A: 0.99 MV V2 max: 84.7 cm/sec MV P1/2t max vicente: 75.5 cm/sec Ao V2 max: 114.1 cm/sec MV max P.9 mmHg MV P1/2t: 82.8 msec Ao max P.2 mmHg MV V2 mean: 46.7 cm/sec MV mean P.0 mmHg MV dec slope: 267.2 cm/sec2 MV V2 VTI: 27.7 cm MVA(P1/2t): 2.7 cm2 LV V1 max: 88.4 cm/sec PA V2 max: 119.8 cm/sec TR max vicente: 262.8 cm/sec LV V1 max P.1 mmHg TR max P.6 mmHg ECHO/Echo Complete W/ Contrast Interpretation Summary Normal LV size. Left ventricular systolic function is normal. The estimated ejection fraction is 60 %. Structurally normal valves. Contrast injection was performed. Ordering Physician: Levar Bustamante Referring Physician: Alireza Lester Performed By: Callmu Kang RCS
[2022-05-31 10:24] LABS: Absolute Neutrophil Count 5.1 X10^3/uL (2.0-7.7); Basophil# 0.04 X10^3/uL; Basophil% 0.5 % (0-1); Eosinophil# 0.27 X10^3/uL; Eosinophils% 3.6 % (0-5); Hematocrit 47.5 % (40-54); Hemoglobin 15.5 g/dL (13.0-16.5); Lymphocyte % 21.4 % (19-41); Mean Corp Hgb Conc 32.6 g/dL (32-36); Mean Corpuscular Hgb 29.9 pg (27.0-32.0); Mean Corpuscular Volume 91.5 fL (80-94); Mean Platelet Vol. 10.1 fl (6.2-12.0); Monocyte# 0.49 X10^3/uL; Monocyte% 6.6 % (0-10); NRBC Flagged by Analyzer 0 % (0-5); Neutrophil # 5.05 X10^3/uL (2.7-7.7); Neutrophil % 67.5 % (47-70); Platelet Count 265 K/mm3 (150-450); RBC Distribution Width CV 12.8 % (11.6-14.6); RBC Distribution Width SD 43.3 fl (35.1-43.9); Red Blood Count 5.19 M/mm3 (4.6-6.2); White Blood Count 7.5 K/mm3 (4.4-11.0)
[2022-05-31 10:48] LABS: Albumin, Serum 3.6 g/dL (3.2-5.0); Anion Gap 5 (5-15); BUN 12 mg/dL (7-18); BUN/Creat Ratio 13.2 RATIO (10-20); Calcium,Total 9.2 mg/dL (8.5-10.1); Chloride 103 mmol/L (98-107); Creatinine, Serum 0.91 mg/dL (0.70-1.30); EST Glomerular Filtration Rate 91 mL/min (>60); Est Glom Filt Rate - Afr Amer 110 mL/min (>60); Glucose 118 mg/dL (74-106); Magnesium 2.3 mg/dL (1.6-2.6); Potassium 4.8 mmol/L (3.5-5.1); Sodium Level 138 mmol/L (136-145)
--- NOTE | 2022-05-31 12:41 | STRESSREP ---
Stress Test Report Pharmacologic myocardial perfusion stress test. 61-year-old man with a history of chest pain Resting EKG demonstrates sinus bradycardia with a rate of 57 bpm. Resting blood pressure is 120/84 mmHg. 0.4 mg of regadenoson was infused per usual protocol followed by rapid intravenous saline flush injection. Continuous EKG monitoring was performed. The maximum heart rate was 83 bpm which was 51% of max impacted heart rate the maximum workload was 1 metabolic equivalent. At rest there were no ST or T wave changes noted to suggest ischemia and at peak infusion nonspecific ST changes were noted which did not meet the criteria for ischemia. No clinical angina is noted. The final blood pressure was 120/80 mmHg. Myocardial perfusion protocol. 14.6 mCi of technetium 99m sestamibi was injected at rest. 0.4 mg of regadenoson was infused per usual protocol. At peak infusion 45 mCi of technetium 99m sestamibi was injected stress images were obtained stress and rest images were reconstructed and compared in the short axis vertical long and horizontal long axis. Gated images were also obtained. Perfusion SPECT analysis: Review of the stress images demonstrate normal uptake of tracer noted in all areas of the myocardium. The resting images similar demonstrated normal uptake of tracer noted in all areas of the myocardium. No areas of reversibility are noted to suggest ischemia and no previous infarct is noted. Gated SPECT analysis: The gated ejection fraction is 63%. Conclusion: Normal pharmacologic myocardial perfusion stress test. Preserved ejection fraction.
== END | disposition home or self-care (01) ==
PROVIDERS: Specialist; PCP Student in an Organized Health Care Education/Training Program; Referring Provider Internal Medicine Cardiovascular Disease; Visit Provider Internal Medicine Cardiovascular Disease
DX: Z01.810 Encounter for preprocedural cardiovascular examination (principal); Z95.5 Presence of coronary angioplasty implant and graft; I25.10 Atherosclerotic heart disease of native coronary artery without angina pectoris
CPT/HCPCS: 36415; 78452; 80048; 82040; 83735; 85025; 87081; 93017; 93306; A9500; Q9957; A4216; C8929; J2785

== ENCOUNTER 2022-06-13 15:34 | Observation (INO) | payer OTHER, SELFPAY ==
--- NOTE | 2022-05-30 14:07 | PCM.HP.BLA ---
History and Physical History and Physical? Patient Name: Pierre Lo : 1960 From:? JOSE M KELLEY PA-C? DATE OF SURGERY:? 06/13/2022 SCHEDULED PROCEDURE:? ?Excision bony ossifications with possible revision right total hip arthroplasty anterior approach HISTORY OF PRESENT ILLNESS: Preoperative history and physical exam was performed on May 28, 2022.? This is a 61-year-old male who had a previous right total hip arthroplasty by Dr. South Sanches on August 10, 2019.? Patient has continued to have pain with his right hip.? He has been followed for heterotopic ossification on x-rays.? Patient has had decrease in range of motion and difficulty with activities of daily living including work duties.? He has pain with going up and down stairs, driving, sitting, and walking.? His pain as being constant.? He has difficulty getting dressed, doing housework and shopping.? After discussion was Dr. South Sanches and failure of conservative measures, the patient would like to proceed with excision bony ossifications with possible revision right total hip arthroplasty.? Patient will be followed by radiation oncologist prior to surgery.? We are requesting surgical clearance from her primary care physician and yardage control clerk.? Patient reports yardage control clerk Dr. Bustamante is currently ordering a stress test.? Patient denies any chest pain, shortness of breath, fevers chills or recent infections.? Patient does have medical history pertinent for coronary artery disease, previous heart stent, sleep apnea.? Patient denies past history of DVT or pulmonary embolism. REVIEW OF SYSTEMS: Review Of Systems: Constitutional: Denies anorexia, change in appetite, fever, difficulty sleeping, weight change. Cardiovasular: Denies chest pain, heart murmur, irregular heartbeat and peripheral vascular disease. Respiratory: Reports sleep apnea, but denies asthma, cough, pneumonia, shortness of breath, tuberculosis and wheezing. Gastrointestinal: Reports heartburn, but denies constipation, diarrhea, nausea, rectal itching, bloody stools and vomiting. Genitourinary: Denies incontinence. Musculoskeletal: Reports gait disturbance, pain and weakness. Skin: Denies Raynaud's, history of shingles and tattoo. Neurological: Denies ambulatory dysfunction, dizziness, numbness/tingling and tremor. Psychiatric: Denies anxiety, depression, insomnia, mental illness and stress. Hematologic/Lymphatic: Denies anemia, bleeding/bruising tendency and past transfusion. Reviewed and updated. PAST MEDICAL HISTORY: Advance Care Plan: No Advance Directives Effective Date: 07/03/2018 Past Medical History: Medical Problems: Arthritis, Coronary Artery Disease (CAD), Hypercholesterolemia, Sleep Apnea Accidents: Fracture - (1980) LT WRIST Surgical Hx: Heart Stent - (2005) [facility] LT Wrist - (1980) Knee Arthroscopy RT - (02/11/2015) [facility] RT Hip Injection - (01/30/2019) SAW @ [facility] Hip Replacement RT - (08/10/2019) SAW @ [facility] Anesthesia Complications: None Assistive Devices: Glasses - READING, Cpap Reviewed and updated. 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 Personal Habits:? Cigarette Use: Former.Smokeless Tobacco: Never Used Smokeless Tobacco.E-Cigarette Use: Never used.Alcohol: Occasionally.Drug Use: Denies Use.Enjoy Exercising: Exercises 1-3 X/Week. Reviewed, no changes. VITALS: Ht: 68.5 Wt: 245lb Wt k.132 BMI: 36.7 BP: 130/82 Pulse: 60 Resp: 13 T: 97.5 T: 36.4C Pain Level: 2 O2SatR: 96 ALLERGIES: Meloxicam? MEDICATIONS: Aspirin 81 mg 1 by mouth every day, Metoprolol Succinate ER 50 mg 1poq day, Atorvastatin Calcium 80 mg 1po qday PRE-OP EXAM:? General appearance:NORMAL? ? ? Other: Eyes: Conjunctivae and lids: NORMAL? Pupils: ERR Ears, Nose, Mouth, and Throat: NORMAL? Other: Inspection of lips, teeth and gums: NORMAL? ?Other: Neck: Examination of neck: no masses noted. Respiratory: Assessment of respiratory effort: NORMAL? ?Other: ?Auscultation of lungs: clear to auscultation no wheezes, rhonchi or rales. Cardiovascular:? Auscultation of heart: regular rate and rhythm, no murmurs, gallops or rubs. PHYSICAL EXAMINATION: Previous incision on the right hip is well-healed without erythema or signs of infection.? Patient has tenderness to palpation over the lateral hip.? Range of motion: Flexion 45, internal rotation neutral, external rotation 25. IMAGING STUDIES: Previous x-rays of the right hip reveal stable heterotopic ossification along the iliopsoas and gluteus minimus.? On lateral view majority of ossifications are anteriorly. IMPRESSION: 1.? Painful right total hip arthroplasty with heterotopic ossification 2.? Coronary artery disease with previous stents 3.? Hypercholesterolemia 4.? Sleep apnea PLAN: Dr. South Sanches did discuss and review with the patient all treatment options including surgical versus nonsurgical options.? Patient does wish to proceed with the above-stated procedure.? Potential risks, benefits, and complications of the procedure were discussed in detail including but not limited to , infection, nerve and blood vessel damage, persistent pain, numbness, tingling, paresthesias, blood clot, pulmonary embolism, and requirement for possible further surgery.? The patient expressed full understanding and has no further questions for the doctor.? Patient does agree to proceed with the above-stated procedure and has signed the surgery consent form. This dictation was created using voice recognition software. Phonetic and/or grammatical errors may exist. ___? I have re-examined the patient.? There are no clinical changes since date of exam. ___? See progress notes for changes. ___? Dictated on admission Date: ? ? ?Time: Signature:
--- NOTE | 2022-05-31 09:28 | EKG12_ITS ---
Test Reason : PRE-OP Blood Pressure : / mmHG Vent. Rate : 055 BPM Atrial Rate : 055 BPM P-R Int : 176 ms QRS Dur : 092 ms QT Int : 430 ms P-R-T Axes : 033 -19 002 degrees QTc Int : 411 ms Sinus bradycardia Otherwise normal ECG Confirmed by WM STONE, RUSSELL ([id number]), medical editor SIMÓN CONTRERAS ([id number]) on 06/04/2022 9:27:46 AM Referred By: South Sanches Confirmed By:DEVANG BURK MD
[2022-06-13] VITALS (12 sets, daily range): BP systolic 97–134; BP diastolic 61–89; PULSE 59–83; RESP 14–18; TEMP 35.9–37.1; O2SAT 93–100; BMI 37.7
[2022-06-13] MEDS: Lactated Ringers 1,000 ML 15 ML IV ×2 (09:43→11:31)
[2022-06-13] MEDS: Magnesium 1 GM over 15 mins IV (09:45)
[2022-06-13] MEDS: Gabapentin 600 MG Tablet PO (09:45)
[2022-06-13] MEDS: Acetaminophen 500 MG Tablet 1000 MG PO ×2 (09:45→20:34)
[2022-06-13 09:51] LABS: Bedside Glucose 90 mg/dL (74-106)
--- NOTE | 2022-06-13 11:30 | BON_PTH ---
PATIENT: BRE MAGDALENO LOC: MS3 U#:[id number] AGE/SX: 61/M ROOM: FL311 RE06/13/[address]: Dr. South Sanches MD : 1960 BED: 1 DIS: 06/14/2022 SPEC #: [id number] RECD: 06/13/22 16:49 STATUS: ANJELICA CORDOVA #: [id number] MICHELLE: 06/13/22 11:[address]: South Sanches DEPT: SURGICAL PATHOLOGY RECD BY: Dionne Monaco ENTERED: 06/14/22 09:56 SP TYPE: Bone OTHR DR: DO Dr. Alireza Valadez DO Tissues: Hip, NOS Procedures: Decalcification bone/plaque Surgery Specimen Level IV HEADER OPERATION: ERAS, excision of benign lesion PRE-OP DIAGNOSIS: Painful right total hip arthroplasty with heterotopic ossification TISSUE SUBMITTED: Heterotopic bone right hip MICROSCOPIC DIAGNOSIS Heterotopic bone right hip, excision: Pieces of bone with reactive changes, clinically heterotopic bone. TYE:hawk 06/18/2022 MICROSCOPIC DESCRIPTION Slides are reviewed. GROSS DESCRIPTION Received in fixative is one container labeled with the patient's name and designated heterotopic bone right hip. The specimen consists of multiple pieces of bone measuring in aggregate 9.0 x 7.5 x 4.0 cm. Inspector Outside Production sections are submitted in five cassettes after decalcification. / TYE:hawk 06/14/2022 TC:5 CPT: 00565, 77804
[2022-06-13] MEDS: Cefazolin 2 GM in 0.9% Normal Saline 100 ML IV (12:21)
[2022-06-13] MEDS: dexAMETHasone 10 MG/ML Vial IV (12:35)
[2022-06-13] MEDS: Heparin 10,000 UNITS/10 ML Vial 10000 UNITS (13:00)
--- NOTE | 2022-06-13 13:15 | RAD_ITS ---
STUDY: X-RAY - PELVIS AND RIGHT HIP REASON FOR EXAM: Male, 61 years old. Hip replacement surgery TECHNIQUE: 5 limited intraoperative views of the pelvis and hip. COMPARISON: None. FINDINGS: 5 limited intraoperative studies obtained during right hip replacement surgery. Components demonstrate anatomic alignment, no intraoperative complications noted. RAD/Hip 1 view with Pelvis IMPRESSION: No intraoperative complications noted during right hip replacement surgery. Electronically Signed: Chinmay Mcclain MD at 15:15 EDT ,
[2022-06-13] MEDS: JPS (Morphine 10mg/ml) OPERA.SITE (15:06)
--- NOTE | 2022-06-13 15:21 | OP.PCM_ITS ---
Report of Operation Date of Procedure: 06/13/22 Pre-Operative Diagnosis: Painful right total hip replacement, heterotopic ossif ication Post-Operative Diagnosis: Painful right total hip replacement, heterotopic ossification Surgery/Procedure Performed:: Excision of benign lesion right hip 10 cm x 17 cm Description of Surgical Findings:: Patient had a irregularly shaped 10 cm x 17 cm heterotopic ossification removed from the hip. Procedure duration was 150 minutes. 500 mL of blood loss was measured by Cell Saver. Surgeon: South Sanches educational audiologist: Dheeraj Phipps Type of Anesthesia: Spinal General Anesthesia Anesthesiologist: Rc Mayes Special Medications: 2 g Ancef, 1 g TXA at incision, 1 g TXA closure, 10 mg Decadron, joint cocktail (5 mg Duramorph, 30 mL of 0.5% Ropivicaine, 1000 units of epinephrine, 30 mg of Toradol) Specimen's removed: 17 cm x 10 cm irregular bony lesion. Estimated Blood Loss (mL): 500 Fluids Replaced: 1500 mL crystalloid. 350 mm Cell Saver blood Description of Procedure: 61-year-old male who had a total replacement in July 2019 patient did well postoperatively however developed progression of stiffness of the hip. Eventually he had less than 45 degrees range of motion. Intraoperatively range of motion was measured at 30 degrees. He had difficulty with daily activities including sitting in a chair for any duration of time. He had increased pain wi th work. After 1 year of allowing the heterotopic ossification to mature we began to discuss risks and benefits of excision of the lesion. Eventually patient felt the limitations in function were too great and wished to proceed. Risks of the procedure discussed with the patient include infection of the implant including periprosthetic joint infection, blood loss, DVTs, PEs, neurovascular damage, infection, the risk of anesthesia including loss of life. I did explain to the patient that the recurrence of heterotopic ossification is significant. Based on this we did recommend preoperative radiation and postoperative indomethacin. Patient demonstrated understanding of these risks including his increased risk for transfusion related to high risk of blood loss for this procedure. Patient was consented and cleared for surgery. On the day of the procedure patient's right hip was marked in the preoperative area. Patient had received preoperative radiation that morning. After receivin g spinal anesthesia he was taken back to the operating room where he was transferred to the table in the supine position. Anesthesia assumed control of the C-spine and airway and remained controlled throughout the remainder of the procedure. The spinal anesthesia was appropriate however the duration of the case did require converting the patient to LMA general anesthesia. All bony prominences identified well-padded sacral bump was placed underneath the patient's pelvis and the incision was marked out using the previous incision and extending it proximally and distally. Once this was done the right lower extremity was prepped in a sterile fashion while the surgeon scrubbed. Upon range in the room the right lower extremity was draped in a standard orthopedic fashion. Incision was verified landmarks were marked out. Timeout was called everyone agreed upon the side, the site, the procedure be performed, patient's identity and antibiotics given. At this time incision was taken down through skin. We then carefully dissected down through the topical scar tissue down to the tensor fascia rey. The fascia was incised over the TFL muscle and we carefully the adhesed areas. Rectus femoris was identified and we carefully dissected down to the anterior portion of the hip. Once we are down to the anterior portion of the hip we did encounter some of the heterotopic ossification. We took the hip through range of motion and patient was able to flex to about 30 degrees on the table. Images were placed throughout the room in order for us to compare where we are at. We did use live fluoroscopy to verify the position of the heterotopic ossification. Once we are able to identify the root and dissected down to the femur itself we carefully began resection of the bone. Osteotomes and rongeurs were used to carefully debride the heterotopic ossification. We started distally and worked proximally. Once the distal root was removed from the femur we carefully worked from lateral to medial over the anterior hip. Eventually enough bone was removed that we could see the joint implant itself. Live fluoroscopy was used throughout the case to verify the removal of the bone. We also used laparoscopy throughout the case to verify position if we need confirmation before we used an osteotome. We carefully debrided proximally in the area of the superior capsule and gluteus minimus. We did not have to dissected over the tip of the greater trochanter presumably leaving the medius intact. We carefully debrided the posterior portion. There was some very posterior bone that remained mobile and away from the joint. Once we were able to free up the joint we were able to flex the hip to 80 degrees. We took the hip through full range of motion and noted no stab ility. At this point we do not feel any further surgery needed to be done on the hip implants themselves as they remained stable and were only 3 years old. Additionally it was felt that full exposure of the hip dislocation would further increase the amount of local tissue traumatization and increase the patient's risk for recurrent heterotopic ossification. Live fluoroscopy was used to verify resection of the majority of the bony structure and we were able to palpate that there was no areas of bony connection between the pelvis and femur itself. Hemostasis was obtained. Live fluoroscopy was used to verify final resection and a 3-minute dilute Betadine lavage was performed followed by 1 minute chlorhexidine lavage. Bone wax was used to limit some of the bony bleeding from the areas of removal of the heterotopic ossification. Finally the wound was copiously irrigated out with normal saline under low-pressure lavage. Local injection was given. The wound was then closed in a layered cruz fashion closing the fascia with #1 Vicryl. Deep fatty layers with 0 Vicryl subcutaneous layer with 2-0 Vicryl and final skin closure was done with 2-0 nylon suture. Patient was awakened by anesthesia and transferred the PACU for recovery. Postoperative plan: Patient is already received low-dose radiation. We will place him on indomethacin 75 mg daily for 2 weeks with Pepcid. This will be followed by 1 month of meloxicam 7.5 mg p.o. twice daily. Patient was placed on aspirin 81 mg twice daily for DVT prophylaxis. Patient be weightbearing as tolerated activity as tolerated begin range of motion as soon as possible with daily range of motion exercises. During the course of the procedure the physician molder feeder (PE) played a vital role. Their intimate knowledge of my steps in the procedure aided in safe and expedient completion of the procedure. The PE played a vital rolls in positioning particularly in obtaining the appropriate positioning of the sacral bump. The PE was also vital in the retraction of soft tissues during the exposure and especially the femoral work as this is a vital part of the procedure to prevent complications and fractures. The PE was also vital and protecting soft tissues during times of bony cuts and reaming. He also played a vital role in closure with my direct supervision. The PE was also important during reduction and dislocation of the joint and trials intraoperatively. Complications No intraoperative complications Admit VTE Documentation VTE Present on Admission: No VTE Mechan Device Prophylaxis: SCD's VTE Pharm Prophylaxis ordered?: Yes
[2022-06-13] MEDS: Lactated Ringers 1,000 ML 999 ML IV (16:01)
--- NOTE | 2022-06-13 16:15 | RAD_ITS ---
INDICATION: Post Op -- AP both hips on single shonna/lateral of op hip PACU EXAMINATION/TECHNIQUE: X-RAY - RIGHT XR Hip Unilateral with Pelvis when performed; 2-3 Views. 3 views. COMPARISON: June 13, 2022 right hip fluoroscopy, intraoperative. FINDINGS: Left hip intact. Right total hip arthroplasty. Normal position and appearance of the hardware. No kendell-hardware fracture. Subcutaneous emphysema, swelling within the right hip and thigh soft tissues consistent with recent surgery. RAD/Hip Min 2 Views (Portable) IMPRESSION: Post right total hip arthroplasty without perioperative complication. Electronically Signed: Wander Cummins MD at 17:13 EDT ,
--- NOTE | 2022-06-13 17:29 | CON.PCM.HO_ITS ---
Assessment & Plan Assessment/Plan (1) Heterotopic ossification of joint: PLAN: Plan #Excision of benign lesion of right hip 10 cm x 17 cm -Management per primary -Is to be placed on indomethacin 75 mg daily for 2 weeks with Pepcid followed with 1 month of meloxicam 7.5 milligrams oral twice daily as well as aspirin 81 mg twice daily daily for DVT prophylaxis with weightbearing as tolerated. #Coronary disease status post PCI in 2005 -Continue aspirin, statin, beta-adrienne #DVT ppx: Aspirin 81 mg twice daily, manage per primary Effie Wick MD Time spent in the patient's overall evaluation,decision-making process, review of diagnostic data, adjustment of management, discussion with other providers, nursing nursing and ancillary staff involved in patient's care documentation, 31 minutes HPI Consult Data Date of Consult: 06/13/22 HPI Narrative Reason for Consultation: Med management HPI Narrative: Pierre Lo is a 61-year-old male with a history of coronary artery disease status post PCI in 2005 and hyperlipidemia who presented to [facility] 06/13/2022 for a painful right total hip replacement, heterotopic ossification and had surgery with Dr. Sanches of excision of benign lesion of right hip 10 cm x 17 cm. Hospitalist consulted for medical management. Seen postoperatively, starting have a little bit of pain on the right side, denies any other complaints. [facility] Medical History Acquired genu varum Aftercare following right hip joint replacement surgery Arthritis Atherosclerotic heart disease of [place] coronary artery without angina pectoris Cardiology follow-up encounter Coronary artery disease Dietary counseling and surveillance Encounter for follow-up examination after completed treatment for conditions other than malignant neoplasm Greater trochanteric pain syndrome High cholesterol History of echocardiogram History of revision of total replacement of right hip joint History of stress test History of tobacco abuse Hx of fracture of wrist Hypercholesterolemia Hyperlipidemia Localized primary osteoarthritis Nonrheumatic mitral (valve) prolapse Obesity ROSEMARIE (obstructive sleep apnea) Other ossification of muscle, right thigh Overweight Postoperative heterotopic ossification Primary localized osteoarthritis of pelvic region and thigh Sleep apnea Smoker Unilateral primary osteoarthritis, right hip Wears glasses Home Medications aspirin 81 mg tablet,delayed release (Adult Aspirin Regimen) 81 mg PO DAILY HEART HEALTH 06/19/17 [History Last Taken 12/10/17] nitroglycerin 0.4 mg sublingual tablet 0.4 mg sublingual Q5-15M PRN CHEST PAIN 06/19/17 [History Last Taken Unknown] metoprolol succinate 50 mg tablet,extended release 24 hr (Toprol XL) 50 mg PO DAILY 02/08/22 [History Last Taken 06/13/22] atorvastatin 80 mg tablet 80 mg PO QHS CHOLESTEROL #90 tabs 04/23/22 [Rx Last Taken Unknown] Allergy/AdvReac Type Severity Reaction Status Date / Time meloxicam Allergy Unknown Other Verified 06/13/22 09:34 Family History Father , age 78 Myocardial infarction, Onset Age: 64 CAD (coronary artery disease) Mother , age 75 Cancer Arthritis Brother Thyroid cancer Diabetes Sister Thyroid cancer Arthritis Hypertension Anesthesia complication Grandfather Myocardial infarction Arthritis Grandmother Cancer Surgical History History of arthroscopy of right knee History of coronary artery stent placement (09/19/05) History of left heart catheterization (12/11/17) History of total hip arthroplasty (08/10/19) Presence of right artificial hip joint Stented coronary artery Social History Smoking Status: Current some day smoker alcohol intake: current alcohol intake frequency: a few times a week Alcohol type: beer substance use type: does not use caffeine: Yes Type: coffee Number of servings: 2 ROS ROS Narrative General: Denies fever/chills HENT: Denies headache, denies stuffy nose, denies sore throat EYES: Denies changes in vision Resp: Denies cough, denies shortness of breath Cardiac: Denies chest pain GI: Denies abdominal pain, denies changes in bowel, denies nausea/vomiting : Denies changes in urination Extremity: Denies swelling MSK: Denies weakness, starting on the little bit of pain on the right side Neuro: Denies any numbness/tingling Heme: Denies any bleeding or bruising Skin: Denies rashes Psychiatric: No complaints voiced Physical Exam Narrative General: Alert, oriented, no apparent distress HEENT: Atraumatic, normocephalic Eyes: Anicteric, normal conjunctiva, extraocular movements grossly intact Neck: Supple Respiratory: Clear to auscultation bilaterally, normal respiratory effort Cardiovascular: Regular rate and rhythm GI: Soft, nontender, nondistended Extremities: No edema Musculoskeletal: Moving all extremities Neuro: No overt focal neurological deficits Skin: No rashes appreciated Psych: Cooperative Lab / Micro Data Labs: Laboratory Results - last 24 hr 06/13/22 09:17: POC Glucose 90 Radiology Impression Hip/Pelvis X-Ray 06/13/22 13:15 IMPRESSION: No intraoperative complications noted during right hip replacement surgery. Electronically Signed: Chinmay Mcclain MD at 15:15 EDT , Hip X-Ray 06/13/22 16:15 IMPRESSION: Post right total hip arthroplasty without perioperative complication. Electronically Signed: Wander Cummins MD at 17:13 EDT , Charges/Coding Visit Charges Office Visits / Consults: [id number] OV L2 Est
[2022-06-13] MEDS: Morphine 4 MG/ML Syringe IV (18:03)
[2022-06-13] MEDS: 0.9% Saline Lock 10 ML Syringe IV ×3 (18:03→23:12)
[2022-06-13] MEDS: Lactated Ringers 1,000 ML 125 ML IV (18:22)
[2022-06-13] MEDS: Ketorolac 15 MG/ML Vial IV (20:33)
[2022-06-13] MEDS: oxyCODONE 5 MG Tablet PO (20:33)
[2022-06-13] MEDS: Cefazolin 1 GM/50 ML BAG IV (20:33)
[2022-06-13] MEDS: Atorvastatin Calcium 80 MG Tablet PO (20:34)
[2022-06-13] MEDS: Aspirin 81 MG TAB.CHEW PO (20:34)
[2022-06-13] MEDS: Senna/Docusate Sodium 1 Tablet 2 TABLET PO (20:35)
[2022-06-13] MEDS: Morphine 2 MG/ML Syringe IV (23:13)
[2022-06-14 02:57] VITALS: BP 119/57; PULSE 69; RESP 18; TEMP 36.6; O2SAT 97
[2022-06-14] MEDS: Morphine 2 MG/ML Syringe IV (02:58)
[2022-06-14] MEDS: 0.9% Saline Lock 10 ML Syringe IV (02:59)
[2022-06-14] MEDS: Cefazolin 1 GM/50 ML BAG IV (03:25)
[2022-06-14] MEDS: Acetaminophen 500 MG Tablet 1000 MG PO (06:14)
[2022-06-14] MEDS: oxyCODONE 5 MG Tablet PO ×2 (06:14→10:33)
[2022-06-14 07:10] LABS: Hematocrit 42.7 % (40-54); Hemoglobin 13.8 g/dL (13.0-16.5); Mean Corp Hgb Conc 32.3 g/dL (32-36); Mean Corpuscular Hgb 29.9 pg (27.0-32.0); Mean Corpuscular Volume 92.6 fL (80-94); Platelet Count 289 K/mm3 (150-450); RBC Distribution Width CV 12.9 % (11.6-14.6); RBC Distribution Width SD 44.1 fl (35.1-43.9); Red Blood Count 4.61 M/mm3 (4.6-6.2); White Blood Count 22.9 K/mm3 (4.4-11.0)
[2022-06-14 07:48] LABS: Anion Gap 7 (5-15); BUN 16 mg/dL (7-18); BUN/Creat Ratio 17.2 RATIO (10-20); Calcium,Total 8.7 mg/dL (8.5-10.1); Chloride 106 mmol/L (98-107); Creatinine, Serum 0.93 mg/dL (0.70-1.30); EST Glomerular Filtration Rate 88 mL/min (>60); Est Glom Filt Rate - Afr Amer 107 mL/min (>60); Estimated Creatinine Clearance 81.72 ml/min; Glucose 151 mg/dL (74-106); Potassium 4.1 mmol/L (3.5-5.1); Sodium Level 139 mmol/L (136-145)
[2022-06-14] MEDS: Ketorolac 15 MG/ML Vial IV (08:55)
[2022-06-14 08:59] VITALS: PULSE 63
[2022-06-14] MEDS: Famotidine 20 MG Tablet PO (08:59)
[2022-06-14] MEDS: Metoprolol(XL)Succ 50 MG Tablet PO (08:59)
[2022-06-14 09:00] VITALS: BP 120/54; PULSE 63; RESP 18; TEMP 36.4; O2SAT 98
[2022-06-14] MEDS: Aspirin 81 MG TAB.CHEW PO (09:03)
[2022-06-14] MEDS: Senna/Docusate Sodium 1 Tablet 2 TABLET PO (09:03)
[2022-06-14] MEDS: Ensure Surgery 237 ML LIQUID PO (09:05)
--- NOTE | 2022-06-14 09:35 | PCM.PN.ORT ---
Subjective Subjective The patient was sitting in bed upon examination. Patient denies any chest pain, shortness of breath, dizziness, lightheadedness, nausea or vomiting, or calf pain. Pain is controlled on medications. No adverse overnight events. Patient does complain of some right thigh soreness. He has been up walking doing well. Patient reports he has meloxicam allergy was hives but is uncertain if that was the medication that caused it. Objective Data Objective Data Vital Signs: Vital Signs Temp Pulse Resp BP Pulse Ox O2 Del Method O2 Flow Rate 97.6 F L 63 18 120/54 L 98 Room Air 4 06/14/22 09:00 06/14/22 09:00 06/14/22 09:00 06/14/22 09:00 06/14/22 09:00 06/14/22 09:00 06/13/22 17:20 Oxygen Flow Rate (L/min) 4 Oxygen Delivery Method Room Air Weight: 112.491 kg Body Mass Index (BMI) 37.7 Intake & Output: Intake and Output for Last 24 Hours 06/12/22 06/13/22 06/14/22 23:59 23:59 23:59 Intake Total 3382 / 3382 964.58 / 964.58 Balance 3382 / 3382 964.58 / 964.58 Lab / Micro Data Result Diagrams: 06/14/22 06:45 06/14/22 06:45 Labs: Laboratory Results - last 24 hr 06/13/22 09:17: POC Glucose 90 06/14/22 06:45: WBC 22.9 H, RBC 4.61, Hgb 13.8, Hct 42.7, MCV 92.6, MCH 29.9, MCHC 32.3, RDW Std Deviation 44.1 H, RDW [place] 12.9, Plt Count 289, MPV 10.0 06/14/22 06:45: Sodium 139, Potassium 4.1, Chloride 106, Carbon Dioxide 26.0, Anion Gap 7, BUN 16, Creatinine 0.93, Estim Creat Clear Calc 81.72, Est GFR (MDRD) Af Amer 107, Est GFR (MDRD) Non-Af 88, BUN/Creatinine Ratio 17.2, Glucose 151 H, Calcium 8.7 Radiography Diagnostic Testing: Radiology Impression Hip/Pelvis X-Ray 06/13/22 13:15 IMPRESSION: No intraoperative complications noted during right hip replacement surgery. Electronically Signed: Chinmay Mcclain MD at 15:15 EDT , Hip X-Ray 06/13/22 16:15 IMPRESSION: Post right total hip arthroplasty without perioperative complication. Electronically Signed: Wander Cummins MD at 17:13 EDT , Physical Exam Narrative Vital signs stable and afebrile. SCDs and ROBINSON hose are in place bilaterally Patient is able to plantarflex and dorsiflex actively. Sensation is intact to light touch to saphenous, sural, superficial and deep peroneal, and tibial distribution. Prevena incisional wound VAC in place with no drainage in tubing or canister Negative Homans bilaterally, negative signs and symptoms of DVT. Const alert, oriented x3 and no apparent distress Assessment & Plan Assessment/Plan (1) Heterotopic ossification of joint: PLAN: 1. S/P excision of benign lesion right hip POD #1 2. Continue Pain Medications: Tylenol and oxycodone. Patient is currently on indomethacin for 2 weeks postoperatively which will then be followed by Celebgarden plain. I discussed with the patient the potential for stomach irritation and he will continue with the famotidine postoperatively. He will contact our office with any concerns or symptoms. 3. DVT Prophylaxis: Take 81 mg aspirin twice daily for 4 weeks postoperatively for DVT prophylaxis. Patient denies past history of DVT or pulmonary embolism 4. PT/OT: Weightbearing as tolerated with walker 5. H & H: 13.8/42.7, asymptomatic. Postoperative anemia secondary to acute blood loss from surgery without any intra operative complications. 6. Reactive leukocytosis: Currently 22.9, afebrile. Patient did receive Decadron intraoperatively. No underlying clinical signs of infection. 7. Continue postoperative medical management per medicine 8. Encouraged Incentive Spirometry 9. Disposition: Plan will be for discharge home today as long as patient tolerates therapy and pain is well controlled. Patient would like his prescriptions E scribed to [facility]. He will follow-up per postop instructions. He does have postoperative physical therapy scheduled. Upon discharge patient will contact our office with any concerns or questions. Case was discussed with [place]. I have reviewed the [place] Automated Rx Reporting System (OARRS) report for this patient for refill pattern and other prescriber involvement as part of the appropriate surveillance for the provision of acute and chronic controlled medications. The report was requested and reviewed on the date of this entry and was considered in the prescribing process. This dictation was created using voice recognition software. Phonetic and/or grammatical errors may exist.
--- NOTE | 2022-06-14 09:40 | DCINST_ITS ---
Discharge Instructions Diet Discharge Diet: No restrictions Activity Discharge Activity: May Not Drive (while taking narcotic pain medications.) May shower in (days): 6 (only if incision is dry and without drainage. Do NOT soak/submerge in tub/pool/chavez/stream/hot tub.)) Ice area for (Minutes): 20 (Every 1-2 hours while awake[address] barrier between ice and skin.) Weight Bearing Status: Weight bearing as tolerated Keep extremity elevated above heart level: Operative Extremity Additional Activity Instructions:: Follow [facility] Post-op Instructions. Once postoperative dressing has been removed only use gentle soap and water over the incision. Do not use any ointments, Neosporin, salves, alcohol pads over the incision for 6 weeks postoperatively. Do not submerge underwater for 6 weeks postoperatively. Wear elastic stockings for 2 weeks. Do NOT use alcohol with narcotic pain medication. Do NOT make important decisions while taking narcotic medication. If you have problems with taking your medication (rash, itching, nausea, etc.) call the office at once. Dressing / Incision Call your doctor if your incision/area has: Continuous Slow Oozing, Sudden Increased Bleeding, Increased Pain/ Swelling, Increased Redness and Foul Smelling Discharge Call your doctor if you observe: Fever of 101 or Higher, Shortness of breath, Chest pain, Calf discomfort and Uncontrolled pain Remove Dressing in: 6 days (Remove dressing on June 19, 2022. If the battery dies it is okay to remove the dressing at that time. He has not to get it wet for a minimum of 5 days or until the dressing has been removed.) Additional Dressing/Incision Instructions:: Follow [facility] Post-op Instructions. Once postoperative dressing has been removed, only use gentle soap and water over the incision. Do not use any ointments, Neosporin, salves, alcohol pads over the incision for 6 weeks postoperatively. Do not submerge underwater for 6 weeks postoperatively. Continue with ROBINSON hose/elastic stockings for 2 weeks postoperatively. May remove at nighttime but needs to be placed back on the leg during the day. Do NOT use alcohol with narcotic pain medication. Do NOT make important decisions while taking narcotic medication. If you have problems with taking your medication (rash, itching, nausea, etc.) call the office at once. Follow Up Care Test Results: Test results from this visit will be discussed in further detail at your follow- up appointment, if applicable. Discharge Plan Admission Admit Date/Time: 06/13/22 15:34 Attending Provider: South Sanches Primary Care Provider: Alireza Lester Consulting Providers: Rc Garzon Discharge Orders/Prescriptions Prescriptions: New acetaminophen 500 mg Tablet 1,000 mg PO TID 14 Days Qty: 84 0RF Rx Instructions: Do not take more than 3000 mg Tylenol in a 24-hour period. aspirin 81 mg Tablet,Chewable 81 mg PO BIDCM Qty: 0 0RF Rx Instructions: Take 81 mg aspirin twice daily for 4 weeks postoperatively for DVT prophylaxis. famotidine [Pepcid] 20 mg tablet 20 mg PO DAILY 30 Days Qty: 30 0RF indomethacin 25 mg Capsule 25 mg PO TIDCM 14 Days Qty: 42 0RF Rx Instructions: Take for 2 weeks postoperatively oxycodone 5 mg Tablet 5 - 10 mg PO Q4H PRN PRN (Reason: Pain Score 4-10) 5 Days Qty: 42 0RF Senna Plus 8.6-50 mg capsule 2 tab-cap PO BID 3 Days Qty: 12 0RF Rx Instructions: Take until first bowel movement, then as needed Continued nitroglycerin 0.4 mg tablet, sublingual 0.4 mg SUBLINGUAL Q5-15M PRN (Reason: CHEST PAIN) metoprolol succinate [Toprol XL] 50 mg tablet extended release 24 hr 50 mg PO DAILY atorvastatin 80 mg tablet 80 mg PO QHS Qty: 90 4RF Discontinued aspirin [Adult Aspirin Regimen] 81 mg tablet,delayed release (DR/EC) 81 mg PO DAILY Referrals / Follow Up: Alireza Lester DO [Primary Care Provider] - Disposition Disposition (needs filled in before D/C Order can be placed): Home, Self Care
--- NOTE | 2022-06-14 09:52 | CASEMGMT ---
ALAYNA CASILLAS Assessment: Face to Face with pt for initial transition planning/care coordination assessment. RN VINNY introduced self and role at [facility], pt voices understanding and consents to assessment. Pt is A/O x4 and answers all questions appropriately at this time. Pt lying in bed in no distress. Care providers, pharmacy, and demographics verified/updated. Admitting Dx: Rt excision bony ossification, poss total hip PCP:Trevon Specialists: ciara Sanches; Robby, cardio Preferred Pharmacy: [facility] [place] Insurance: MMO Prescription Benefit: yes LNOK: Susana Lo, Living Arrangements: Pt lives with in a two story home with 2 steps to enter. Pt reports he is I in ADL's and denies concerns at home. Transportation: Pt drives self and denies concerns with transportation. Pt will transport him to medical appts until he is able. DME/HHC/SNF: Pt has a cane and FWW at home. Pt denies hx of HHC or SNF stays. Pt states no concerns with going home at time of dc. Pt reports he has outpt therapy set up at [facility] on Saturday. Pt states no further concerns/needs. CM to follow. Advised pt to ask CM if any further question/concerns/needs arise, voices understanding. Pt Goal: Home with outpt therapy set up Plan: Home with outpt therapy set up
--- NOTE | 2022-06-14 10:37 | PN.HOSP_ITS ---
Reason for Visit Reason for Visit: Diagnoses Other acute postprocedural pain (06/13/22) Other specified joint disorders, unspecified joint (06/13/22) Encounter for preprocedural cardiovascular examination (06/13/22) Subjective Subjective Feels well, denies any complaints. Objective Data Objective Data Vital Signs: Vital Signs Temp Pulse Resp BP Pulse Ox O2 Del Method O2 Flow Rate 36.4 C L 63 18 120/54 L 98 Room Air 4 06/14/22 09:00 06/14/22 09:00 06/14/22 09:00 06/14/22 09:00 06/14/22 09:00 06/14/22 09:00 06/13/22 17:20 Oxygen Flow Rate (L/min) 4 Oxygen Delivery Method Room Air Weight: 112.491 kg Body Mass Index (BMI) 37.7 Intake & Output: Intake and Output for Last 24 Hours 06/12/22 06/13/22 06/14/22 23:59 23:59 23:59 Intake Total 3382 / 3382 964.58 / 964.58 Balance 3382 / 3382 964.58 / 964.58 Lab / Micro Data Result Diagrams: 06/14/22 06:45 06/14/22 06:45 Labs: Laboratory Results - last 24 hr 06/14/22 06:45: WBC 22.9 H, RBC 4.61, Hgb 13.8, Hct 42.7, MCV 92.6, MCH 29.9, MC HC 32.3, RDW Std Deviation 44.1 H, RDW Coeff of [place] 12.9, Plt Count 289, MPV 10.0 06/14/22 06:45: Sodium 139, Potassium 4.1, Chloride 106, Carbon Dioxide 26.0, Anion Gap 7, BUN 16, Creatinine 0.93, Estim Creat Clear Calc 81.72, Est GFR (MDRD) Af Amer 107, Est GFR (MDRD) Non-Af 88, BUN/Creatinine Ratio 17.2, Glucose 151 H, Calcium 8.7 Radiography Diagnostic Testing: Radiology Impression Hip/Pelvis X-Ray 06/13/22 13:15 IMPRESSION: No intraoperative complications noted during right hip replacement surgery. Electronically Signed: Chinmay Mcclain MD at 15:15 EDT , Hip X-Ray 06/13/22 16:15 IMPRESSION: Post right total hip arthroplasty without perioperative complication. Electronically Signed: Wander Cummins MD at 17:13 EDT , Physical Exam Const alert and no apparent distress HEENT head/scalp atraumatic Resp normal respiratory effort, no retractions, no use of accessory muscles and clear to auscultation bilaterally Cardio regular rate, regular rhythm, S1 normal heart sound and S2 normal heart sound GI normal to inspection, nondistended, normoactive bowel sounds, soft to palpation, non-tender and non-distended Extremity Extremity Narrative: wound vac on right leg. Assessment & Plan Assessment/Plan (1) Leukocytosis: PLAN: reactive and likely exacerbated by steroids (TING [employer]--pt did receive dexamethasone) Afebrile PLAN: Plan S/P excision of benign right hip lesion. Mgmt per orthopaedics. Medically stable for discharge--will sign off. Charges/Coding Visit Charges Inpatient E&M: 85200 Subs Hosp L2
[2022-06-14 11:25] VITALS: O2SAT 98
== END 2022-06-14 12:15 | disposition home or self-care (01) ==
LOC: MS3 06-14 07:03
PROVIDERS: Admitting Provider Specialist; PCP Student in an Organized Health Care Education/Training Program; Referring Provider Specialist; Visit Provider Specialist
PROC: (CPT 27299; principal; 2022-06-13 11:05)
DX: T88.8XXA Other specified complications of surgical and medical care, not elsewhere classified, initial encounter (principal); T84.84XA Pain due to internal orthopedic prosthetic devices, implants and grafts, initial encounter; I25.10 Atherosclerotic heart disease of native coronary artery without angina pectoris; M19.90 Unspecified osteoarthritis, unspecified site; G47.33 Obstructive sleep apnea (adult) (pediatric); Z79.82 Long term (current) use of aspirin; F17.200 Nicotine dependence, unspecified, uncomplicated; E78.00 Pure hypercholesterolemia, unspecified; Z79.899 Other long term (current) drug therapy; Y79.2 Prosthetic and other implants, materials and accessory orthopedic devices associated with adverse incidents; Z96.641 Presence of right artificial hip joint; Z95.5 Presence of coronary angioplasty implant and graft; M89.8X8 Other specified disorders of bone, other site
CPT/HCPCS: 27299; 01210; 36415; 73501; 73502; 76000; 80048; 82962; 85027; 88305; 88311; 93005; 94668; 96361; 96365; 96366; 96375; 96376; 97161; 99221; 99252; 99406; J7120; A4216; G0378; G0463; J2405; J3475